=== PATIENT | female | born 1990 | race Caucasian/White ===

== ENCOUNTER → 2016-07-02 | Day surgery (SDC) | payer OTHER ==
[2016-06-25 14:34] VITALS: Ht 163.8 cm; Wt 63.6 kg
[~2016-07-02] VITALS: Ht 163.8 cm; Wt 63.6 kg
[~2016-07-02] MED LIST: ATROPINE SULFATE 0.1 MG/ML 5ML SYR IV PRN; BUPIVACAINE/EPINEPHRINE 0.5% MPF 1:200,000 30 ML VIAL ONE; CEFAZOLIN 1000MG/55 ML D5W IV SCH; EpHEDrine SULFATE INJ 50 MG/ML AMP IV PRN; FENTANYL CITRATE INJ 50 MCG/1 ML 2 ML VIAL ONE; HYDROCODONE/ACETAMOPHEN 5/325MG TAB PO PRN; IBUPROFEN 600 MG TAB PO PRN; LACTATED RINGER'S 1000ML 1,000 ML IV SCH; LIDOCAINE HCL 2% 2 ML VIAL (20MG/ML) ONE; MIDAZOLAM HCL 1 MG/ML 2ML VIAL ONE; ONDANSETRON INJ 2 MG/ML 2 ML VIAL IV PRN; PROPOFOL IV EMULSION 10 MG/ML 20 ML VIAL IV ONE; SODIUM CHLORIDE 0.9% 1000ML 1,000 ML IV SCH; SULF800T23 PO
--- NOTE | 2016-07-02 08:51 | History & Physical Bridge Note ---
H&P Re-Evaluation Bridge Note: I have examined the patient, reviewed the History & Physical and in the interval since the performance of the History & Physical I have noted the following changes of clinical significance: No changes noted
[2016-07-02 09:31] VITALS: TEMP 37.2
--- NOTE | 2016-07-02 09:33 | Discharge Instructions ---
Discharge Instructions Admission Reason for Admission: Infected Sebaceous Cyst Of Chest Wall Skin Discharge Discharge Diagnosis / Problem: Infected sebaceous cyst of chest wall. Discharge Goals Goal(s): Decrease discomfort Activity Recommendations Activity Limitations: per Instructions/Follow-up section Shower/Bathe: tomorrow . Instructions / Follow-Up Instructions / Follow-Up Please follow-up with Dr. Leger in 1 week. Patient can take Ibuprofen for pain control. Please call the office with any questions and/or concerns. Current Hospital Diet Patient's current hospital diet: Discharge Diet Recommended Diet: Regular Diet Procedures Procedures Performed: Chest Wall Sebaceous Cyst Excision Pending Studies Studies pending at discharge: yes List of pending studies: Pathology Medical Emergencies . Who to Call and When: Medical Emergencies: If at any time you feel your situation is an emergency, please call 911 immediately. . Non-Emergent Contact Non-Emergency issues call your: Primary Care Provider, Surgeon Call Non-Emergent contact if: temperature is above 101, wound has increased drainage, wound has increased redness . "Provider Documentation" section prepared by Autumn Nicholas. VTE Core Measure Inpt VTE Proph given/why not?: Unfractionated heparin SQ, SCD's
--- NOTE | 2016-07-02 09:35 | [facility] Operative Report ---
Operative Report Operative Date Jul 02, 2016. Pre-Operative Diagnosis Infected Sebaceous Cyst of Chest Wall Skin Post-Operative Diagnosis sebaceous cyst chest wall Procedure(s) Performed excision sebaceous cyst Surgeon Dr. Leger Consumer Attorney Surgeon(s) Cale Nicholas PA-C Estimated Blood Loss 5 ml Findings seymour cyst chest wall. noninflammed at time of excision Specimens A. Chest Wall Sebaceous Cyst Anesthesia MAC Complication(s) None Disposition Recovery Room / PACU I attest to the content of the Intraoperative Record and any orders documented therein. Any exceptions are noted below.
--- NOTE | 2016-07-02 09:39 | Anesthesia Progress Nt - [facility] ---
Anesthesia Post Op Note Date & Time Jul 02, 2016 at 09:39 Vital Signs Pain Intensity: 0 Vital Signs Past 12 Hours Date Time Temp Pulse Resp B/P Pulse Ox O2 Delivery O2 Flow Rate FiO2 07/02/16 09:31 37.2 88 16 108/66 99 Room Air 07/02/16 07:54 36.9 82 16 121/79 97 Room Air Notes Mental Status: alert / awake / arousable, participated in evaluation Pt Amnestic to Procedure: Yes Nausea / Vomiting: adequately controlled Pain: adequately controlled Airway Patency, RR, SpO2: stable & adequate BP & HR: stable & adequate Hydration State: stable & adequate Anesthetic Complications: no major complications apparent
--- NOTE | 2016-07-02 09:50 | OPERATIVE REPORT ---
DATE OF OPERATION: 07/02/2016 PREOPERATIVE DIAGNOSIS: Sebaceous cyst of the chest wall. POSTOPERATIVE DIAGNOSIS: Same. PROCEDURE: Excision of sebaceous cyst the chest wall approximately 2.5 cm. SURGEON: Dr. Leger. VALUE STREAM MANAGER: Autumn Nicholas. COMPLICATIONS: No immediate. ANESTHESIA: MAC with local. DESCRIPTION OF PROCEDURE: After informed consent was obtained, the patient taken to the operating suite and placed in supine position. IV sedation was administered by anesthesia and titrated to effect. After adequate sedation was obtained, the chest wall was sterilely prepped and draped. We then used Marcaine with epinephrine to skin wheels around the entire visible lesion. I then made a vertical incision directly over and carried it down through the soft tissue using electrocautery. Once in the soft tissue, we were able to easily identify what looked like a sebaceous cyst. It was noninflamed and noninfected. We did break the capsular release and a small amount of sebaceous material. I was able to grab the cyst using electrocautery circumferentially come around the entire thing and take it out in 1 big piece. It was passed out to be sent to pathology. No other palpable abnormalities were identified. I irrigated the wound. I closed in multiple layers using 3-0 Vicryl for the deep layers and 4-0 Monocryl for the skin. Benzoin and Steri-Strips were used as a dressing. The patient was awakened and transferred to recovery in stable condition. I attest to the content of the Intraoperative Record and any orders documented therein. Any exceptio ns are noted below.
[2016-07-02 09:51] VITALS: BP 111/73; PULSE 52; O2SAT 100
== END | disposition home or self-care (01) ==
LOC: X.SURG 07:46
PROVIDERS: ATTEND Surgery
DX: L72.3 Sebaceous cyst (principal); Z88.2 Allergy status to sulfonamides

== ENCOUNTER 2017-07-22 13:48 | Emergency (ER) | payer OTHER ==
[~2017-07-22] VITALS: Ht 165.1 cm; Wt 70.5 kg
[~2017-07-22 13:48] MED LIST changes: -ATROPINE SULFATE 0.1 MG/ML 5ML SYR IV PRN; -BUPIVACAINE/EPINEPHRINE 0.5% MPF 1:200,000 30 ML VIAL ONE; -CEFAZOLIN 1000MG/55 ML D5W IV SCH; -EpHEDrine SULFATE INJ 50 MG/ML AMP IV PRN; -FENTANYL CITRATE INJ 50 MCG/1 ML 2 ML VIAL ONE; -HYDROCODONE/ACETAMOPHEN 5/325MG TAB PO PRN; -IBUPROFEN 600 MG TAB PO PRN; -LACTATED RINGER'S 1000ML 1,000 ML IV SCH; -LIDOCAINE HCL 2% 2 ML VIAL (20MG/ML) ONE; -MIDAZOLAM HCL 1 MG/ML 2ML VIAL ONE; -ONDANSETRON INJ 2 MG/ML 2 ML VIAL IV PRN; -PROPOFOL IV EMULSION 10 MG/ML 20 ML VIAL IV ONE; -SODIUM CHLORIDE 0.9% 1000ML 1,000 ML IV SCH
[2017-07-22 13:57] VITALS: TEMP 37.1; Ht 165.1 cm; Wt 70.5 kg
[2017-07-22] MEDS ORDERED: SODIUM CHLORIDE 0.9% 1000ML 1,000 ML IV STA (14:11)
--- NOTE | 2017-07-22 14:37 | DIAGNOSTIC IMAGING REPORT ---
CHEST ONE VIEW PORTABLE CLINICAL HISTORY: Altered mental status. Weakness. COMPARISON STUDY: No previous studies for comparison. FINDINGS: Lung volumes are normal. Lungs are clear. No pneumothorax or pleural effusion is noted. Cardiac size is normal. Mediastinal contours are normal. There is no evidence for pulmonary edema. IMPRESSION: No acute cardiopulmonary findings. Electronically signed by: Judah Patrick M.D. 07/22/2017 2:36 PM Dictated Date/Time: 07/22/2017 2:35 PM
[2017-07-22 14:44] LABS: BASO % 0.4 %; BASO ABS # 0.04 K/uL (0-0.2); EOS % 0.7 %; EOS ABS # 0.06 K/uL (0-0.5); HEMATOCRIT 35.5 % (37-47); HEMOGLOBIN 12.8 g/dL (12.0-16.0); IG# 0.02 K/uL (0.00-0.02); LYMPH % 26.8 %; MEAN CELL VOLUME 85.3 fL (80-100); MEAN CORPUSCULAR HEMOGLOBIN 30.8 pg (25-34); MEAN CORPUSCULAR HGB CONC 36.1 g/dl (32-36); MEAN PLATELET VOLUME 8.9 fL (7.4-10.4); MONO % 5.7 %; MONO ABS # 0.51 K/uL (0.11-0.59); NEUT % 66.2 %; NEUT ABS # 5.92 K/uL (1.4-6.5); PLATELET COUNT 229 K/uL (130-400); RED CELL DISTRIBUTION WIDTH CV 12.6 % (11.5-14.5); RED CELL DISTRIBUTION WIDTH SD 38.9 fL (36.4-46.3); WHITE BLOOD COUNT 8.95 K/uL (4.8-10.8)
[2017-07-22 14:51] LABS: PTT PATIENT 26.7 SECONDS (21.0-31.0)
[2017-07-22 15:02] LABS: ALBUMIN 4.3 gm/dl (3.4-5.0); ALT/SGPT 22 U/L (12-78); BLOOD UREA NITROGEN 12 mg/dl (7-18); CALCIUM 9.1 mg/dl (8.5-10.1); CARBON DIOXIDE 23 mmol/L (21-32); CREATININE 0.82 mg/dl (0.60-1.20); GLUCOSE 83 mg/dl (70-99); LIPASE 143 U/L (73-393); POTASSIUM 3.7 mmol/L (3.5-5.1); SODIUM 139 mmol/L (136-145)
[2017-07-22 15:10] LABS: ALKALINE PHOSPHATASE 64 U/L (45-117); AST/SGOT 15 U/L (15-37); CKMB < 0.5 ng/ml (0.5-3.6); TOTAL PROTEIN 7.9 gm/dl (6.4-8.2)
[2017-07-22] MEDS ORDERED: OPTIRAY 320 IV PRN (15:30)
--- NOTE | 2017-07-22 15:40 | DIAGNOSTIC IMAGING REPORT ---
(CHEST FOR PE) ANGIO WITH CT DOSE: 242.04 mGy.cm HISTORY: Chest pain dyspnea TECHNIQUE: Multiaxial CT images of the chest were performed following the intravenous administration of contrast to evaluate the pulmonary arteries. Maximal intensity projection images were also obtained. A dose lowering technique was utilized adhering to the principles of ALARA. COMPARISON STUDY: None. FINDINGS: There is a normal caliber thoracic aorta with no evidence for dissection. There is no evidence for pulmonary embolus. No pleural effusions. No pneumothorax. The liver and spleen are unremarkable. No mediastinal or hilar lymphadenopathy. The central airways are patent. The lungs are clear. IMPRESSION: No evidence for pulmonary embolus. The lungs are clear. The above report was generated using voice recognition software. It may contain grammatical, syntax or spelling errors. Electronically signed by: Joseph Ramirez M.D. 07/22/2017 3:39 PM Dictated Date/Time: 07/22/2017 3:37 PM
--- NOTE | 2017-07-22 16:00 | EMERGENCY ROOM VISIT NOTE ---
History Report prepared by Greer: Emigdio Marte Under the Supervision of: Dr. Yuval Mccracken D.O. First contact with patient: 14:07 Chief Complaint: SHORTNESS OF BREATH Stated Complaint: SOB History of Present Illness The patient is a 26 year old female who presents to the Emergency Room with complaints of persistent shortness of breath on exertion that started a couple weeks ago. Per the patient's brother, the patient runs half-marathons, and runs on a daily basis. The patient had an upper respiratory infection a month ago with severe congestion, and was given a nasal spray by Dr. De Oliveira. The patient's symptoms started to clear up, and she started running again. She then started to have some episodes of dry heaving after starting to run again, but for the past couple of weeks, has been getting severely short of breath during even minimal exertion, such as making her bed or walking to her car. The patient notes that she was not on antibiotics during her upper respiratory infection. She is not on control. She adds that she has had some intermittent chest pain over the past few weeks, but notes that the pain has not been bad. The patient denies any pain or swelling in her legs, in addition to any recent surgeries or long trips. She does not drink alcohol or use tobacco products. Source of History: patient, family (brother) Onset: A couple weeks ago Position: other (global ) Symptom Intensity: severe Quality: other (shortness of breath) Timing: other (persistent) Modifying Factors (Worsening): exertion Associated Symptoms: + chest pain (intermittent), No vomiting Note: Associated symptoms: URI symptoms earlier last month. Denies pain or swelling to legs. Review of Systems See HPI for pertinent positives & negatives. A total of 10 systems reviewed and were otherwise negative. Past Medical & Surgical Medical Problems: (1) No chronic problems Family History No pertinent family history Social History Smoking Status: Never Smoker Smokeless Tobacco Use: No Alcohol Use: none Drug Use: none Marital Status: single Occupation Status: employed Current/Historical Medications No Active Prescriptions or Reported Meds Allergies Coded Allergies: No Known Allergies (Verified , 07/22/17) Physical Exam Vital Signs Date Time Temp Pulse Resp B/P (MAP) Pulse Ox O2 Delivery O2 Flow Rate FiO2 07/22/17 15:38 85 16 144/70 96 Room Air 3/2/18 14:18 98 Room Air 07/22/17 13:57 37.1 57 17 134/76 93 Room Air Physical Exam CONSTITUTIONAL/VITAL SIGNS: Reviewed / noted above. GENERAL: Non-toxic in appearance. INTEGUMENTARY: Warm, dry, and [place]. HEAD: Normocephalic. EYES: without scleral icterus or trauma. ENT/OROPHARYNX: clear and moist. LYMPHADENOPATHY/NECK: Is supple without lymphadenopathy or meningismus. RESPIRATORY: Lungs clear and equal. CARDIOVASCULAR: Regular rate and rhythm. GI/ABDOMEN: Soft and nontender. No organomegaly or pulsatile mass. No rebound or guarding. Normal bowel sounds. EXTREMITIES: Warm and well perfused. BACK: No CVA tenderness. NEUROLOGICAL: Intact without focal deficits. PSYCHIATRIC: normal affect. MUSCULOSKELETAL: Normally developed with good muscle tone. Medical Decision & Procedures ER Provider Diagnostic Interpretation: Radiology results as stated below per my review and radiologist interpretation: CHEST ONE VIEW PORTABLE CLINICAL HISTORY: Altered mental status. Weakness. COMPARISON STUDY: No previous studies for comparison. FINDINGS: Lung volumes are normal. Lungs are clear. No pneumothorax or pleural effusion is noted. Cardiac size is normal. Mediastinal contours are normal. There is no evidence for pulmonary edema. IMPRESSION: No acute cardiopulmonary findings. Electronically signed by: Judah Patrick M.D. 07/22/2017 2:36 PM Dictated Date/Time: 07/22/2017 2:35 PM (CHEST FOR PE) ANGIO WITH CT DOSE: 242.04 mGy.cm HISTORY: Chest pain dyspnea TECHNIQUE: Multiaxial CT images of the chest were performed following the intravenous administration of contrast to evaluate the pulmonary arteries. Maximal intensity projection images were also obtained. A dose lowering technique was utilized adhering to the principles of ALARA. COMPARISON STUDY: None. FINDINGS: There is a normal caliber thoracic aorta with no evidence for dissection. There is no evidence for pulmonary embolus. No pleural effusions. No pneumothorax. The liver and spleen are unremarkable. No mediastinal or hilar lymphadenopathy. The central airways are patent. The lungs are clear. IMPRESSION: No evidence for pulmonary embolus. The lungs are clear. The above report was generated using voice recognition software. It may contain grammatical, syntax or spelling errors. Electronically signed by: Joseph Ramirez M.D. 07/22/2017 3:39 PM Dictated Date/Time: 07/22/2017 3:37 PM Laboratory Results 07/22/17 14:20 Red Blood Count 4.16, Mean Corpuscular Volume 85.3, Mean Corpuscular Hemoglobin 30.8, Mean Corpuscular Hemoglobin Concent 36.1, Mean Platelet Volume 8.9, Neutrophils (%) (Auto) 66.2, Lymphocytes (%) (Auto) 26.8, Monocytes (%) (Auto) 5.7, Eosinophils (%) (Auto) 0.7, Basophils (%) (Auto) 0.4, Neutrophils # (Auto) 5.92, Lymphocytes # (Auto) 2.40, Monocytes # (Auto) 0.51, Eosinophils # (Auto) 0.06, Basophils # (Auto) 0.04 07/22/17 14:20 Test 07/22/17 14:20 White Blood Count 8.95 K/uL (4.8-10.8) Red Blood Count 4.16 M/uL (4.2-5.4) Hemoglobin 12.8 g/dL (12.0-16.0) Hematocrit 35.5 % (37-47) Mean Corpuscular Volume 85.3 fL (80-100) Mean Corpuscular Hemoglobin 30.8 pg (25-34) Mean Corpuscular Hemoglobin Concent 36.1 g/dl (32-36) Platelet Count 229 K/uL (130-400) Mean Platelet Volume 8.9 fL (7.4-10.4) Neutrophils (%) (Auto) 66.2 % Lymphocytes (%) (Auto) 26.8 % Monocytes (%) (Auto) 5.7 % Eosinophils (%) (Auto) 0.7 % Basophils (%) (Auto) 0.4 % Neutrophils # (Auto) 5.92 K/uL (1.4-6.5) Lymphocytes # (Auto) 2.40 K/uL (1.2-3.4) Monocytes # (Auto) 0.51 K/uL (0.11-0.59) Eosinophils # (Auto) 0.06 K/uL (0-0.5) Basophils # (Auto) 0.04 K/uL (0-0.2) RDW Standard Deviation 38.9 fL (36.4-46.3) RDW Coefficient of Variation 12.6 % (11.5-14.5) Immature Granulocyte % (Auto) 0.2 % Immature Granulocyte # (Auto) 0.02 K/uL (0.00-0.02) Prothrombin Time 10.3 SECONDS (9.0-12.0) Prothromb Time International Ratio 1.0 (0.9-1.1) Activated Partial Thromboplast Time 26.7 SECONDS (21.0-31.0) Partial Thromboplastin Ratio 1.0 Anion Gap 8.0 mmol/L (3-11) Est Creatinine Clear Calc Drug Dose 103.3 ml/min Estimated GFR () 115.3 Estimated GFR (Non- 99.5 BUN/Creatinine Ratio 14.8 (10-20) Calcium Level 9.1 mg/dl (8.5-10.1) Magnesium Level 2.1 mg/dl (1.8-2.4) Total Bilirubin 0.8 mg/dl (0.2-1) Direct Bilirubin 0.2 mg/dl (0-0.2) Aspartate Amino Transf (AST/SGOT) 15 U/L (15-37) Alanine Aminotransferase (ALT/SGPT) 22 U/L (12-78) Alkaline Phosphatase 64 U/L (45-117) Total Creatine Kinase 40 U/L (26-192) Creatine Kinase MB < 0.5 ng/ml (0.5-3.6) Creatine Kinase MB Ratio (0-3.0) Troponin I < 0.015 ng/ml (0-0.045) Total Protein 7.9 gm/dl (6.4-8.2) Albumin 4.3 gm/dl (3.4-5.0) Lipase 143 U/L (73-393) Thyroid Stimulating Hormone (TSH) 1.190 uIu/ml (0.300-4.500) Laboratory results as stated above per my review. Medications Administered Medications (Trade) Dose Ordered Sig/Yvette Route Start Time Stop Time Status Last Admin Dose Admin Sodium Chloride 1,000 ml @ 999 mls/hr Q1H1M STAT IV 07/22/17 14:11 07/22/17 15:11 DC 07/22/17 14:30 999 MLS/HR ECG Per My Interpretation Indication: SOB/dyspnea Rate (beats per minute): 92 Rhythm: normal sinus Findings: other (no ST elevations or depressions, normal intervals) ED Course 1411: Ordered NSS 1000 ml @ 999 mls/hr IV. 1414: Previous medical records were reviewed. The patient was evaluated in room C5. A complete history and physical examination was performed. 1451: I reevaluated the patient and updated her on the test results. 1600: On reevaluation, the patient is resting comfortably. I discussed the results and findings with the patient. She verbalized agreement of the treatment plan. She was discharged home. Medical Decision Differentials considered include acute myocardial infarction, acute coronary syndrome, myocarditis, pericarditis, pericardial effusions /tamponade, esophageal perforation, pulmonary embolism, pneumonia, pneumothorax, cardiomyopathy, congestive heart, anemia, and COPD/asthma exacerbation. This is a 26-year-old female who presents to the ED with a chief complaint of shortness of breath. The patient's symptoms began about a month ago with an upper respiratory infection. Her symptoms have since resolved. She has recently been experiencing exertional dyspnea. Her physical exam was normal. Her vital signs here are normal. An EKG shows a normal sinus rhythm. CBC is normal, troponin was negative, TSH was normal, complete metabolic panel was normal, chest x-ray is normal and a CT scan of the chest did not show acute abnormality. The was told the results of the test. The patient is felt to be stable for discharge and outpatient follow-up. Medication Reconcilliation Current Medication List: was personally reviewed by me Blood Pressure Screening Patient's blood pressure: Elevated blood pressure Blood pressure disposition: Elevated BP felt to be situational Impression Primary Impression: Dyspnea on exertion Scribe Attestation The scribe's documentation has been prepared under my direction and personally reviewed by me in its entirety. I confirm that the note above accurately reflects all work, treatment, procedures, and medical decision making performed by me. Departure Information Dispostion Home / Self-Care Prescriptions No Active Prescriptions or Reported Meds Referrals Sakina Shah A. P.ANancie (PCP) Patient Instructions [facility] Additional Instructions Test results today, including a CT scan of the chest and blood work was normal. Follow-up with your doctor for further care and evaluation in 1-2 weeks for recheck if symptoms persist. Return to the emergency department for worsening or new symptoms or any concerns. You have been examined and treated today on an emergency basis only. This is not a substitute for, or an effort to provide, complete comprehensive medical care. It is impossible to recognize and treat all injuries or illnesses in a single emergency department visit. It is therefore important that you follow up closely with your doctor. Call as soon as possible for an appointment.
[2017-07-22 16:15] VITALS: BP 129/78; PULSE 80; O2SAT 100
== END 2017-07-22 16:16 | disposition home or self-care (01) ==
LOC: C.EDB 13:49 → C.EDC 16:16
DX: R06.00 Dyspnea, unspecified (principal); R07.9 Chest pain, unspecified

== ENCOUNTER 2021-08-24 08:04 | Observation (INO) ==
--- NOTE | 2021-08-24 09:16 | Obstetrical Progress Note ---
Date of Service August 24, 2021 Assessment & Plan (1) Abdominal pain affecting : Plan: 30 y/o G1 at 35wks presents w/ L flank pain VSS Fetus cat 1 Flank pain - seems suspicious for kidney stone based on location w/ intermittent nausea and vomiting. UA ordered. Cervix is closed and toco quiet > low suspicion for ptl. Will hydrate, tylenol, heat pack to see if can get more comfortable Subjective 30 y/o G1 at 35 1/7 wga w/ ZHAO 5/8 by LMP presents to triage w/ c/o L flank pain. Overnight has had intermittent L flank pain. Had few episodes later in the evening that did go away and so pt thought it was BH contractions. She was able to rest but then around 130 began having pain again and notes it has been persistent since 530 this AM. Sometimes is sharp, sometimes is achey. Pain makes her nauseous but does not think she is nauseous separately and is not currently. She did try to take tylenol around 130 but vomited almost immediately after. Has never had kidney stone but mom and brothers have had kidney stones. Denies blood in urine. +FM; denies LOF, VB PNI: Mild polyhydramnios arrhythmia Rh neg Physical Exam Genitourinary: Manual OB Exam: + cervical dilation (closed), + cervical effacement 30% and + station -2 OB Exam Monitor Tracing: + external FHT monitor used, + external uterine monitor used (None) and + category I (130/mod/+accel/-decel) Results & Data ([facility]) Vital Signs (Past 12 Hours) Vital Signs Temp Pulse Resp BP 08/24/21 08:50 98.8 F 90 20 135/88 08/24/21 08:16 90 135/88 PG Care Time/CCT Total # of Minutes Spent Total Time Spent with Patient: Total time spent is greater than 50% in coordination of care (as documented) at patient's floor/unit and/or counseling patient: Coding Level of Care Code None Diagnoses Abdominal pain affecting O26.899; R10.9
[2021-08-24] MEDS ORDERED: ACETAMINOPHEN 500 MG TAB PO PRN (09:17)
[2021-08-24] MEDS ORDERED: CALCIUM CARBONATE 500 MG CHEWABLE TAB PO PRN (09:18)
[2021-08-24 09:28] LABS: Appearance Urine Turbid (Clear); Bacteria Urine Automated 4+ (Negative); Bilirubin Urine Negative (Negative); Blood Urine 3+ (Negative); Color Urine Yellow; Epithelial Cell Urine Auto >30 /lpf (0-5); Glucose Urine UA Trace (Negative); Ketones Urine 3+ (Negative); Leukocyte Esterase Urine 1+ (Negative); Nitrite Urine Negative (Negative); Protein Urine 2+ (Negative); RBC Urine Automated >30 /hpf (0-4); Specific Gravity Urine 1.027 (1.000-1.030); Urobilinogen Urine Negative (Negative); WBC Urine Automated >30 /hpf (0-5)
[2021-08-24 10:20] LABS: Cast Urine Automated 0 /lpf (0-5)
--- NOTE | 2021-08-24 12:03 | Ultrasound Report ---
US renal/blad retro comp CLINICAL HISTORY: left sided pain TECHNIQUE: Multiple sonographic real-time images of the kidneys and bladder were obtained. COMPARISON: None available at the time of this dictation. FINDINGS: The right kidney measures 10.5 cm in length, and the left kidney measures 13.5 cm in length. The right kidney is normal in size, contour, cortical thickness, and echogenicity. Mild hydronephrosi s is seen. No renal lesion is identified. No perinephric fluid collection is seen. The left kidney is normal in size, contour, cortical thickness and echogenicity. Mild hydronephrosis is seen. No renal lesion is identified. No perinephric fluid collection is seen. The bladder is partially distended. No large intraluminal mass is seen. IMPRESSION: Mild bilateral hydronephrosis which may represent hydronephrosis of . ACT 112: Negative or not required by law. Electronically signed by: Devon Kenyon M.D. 08/24/2021 12:01 PM
[2021-08-24] MEDS ORDERED: BUTORPHANOL TARTRATE 1 MG/ML VIAL IV ONE (13:02)
[2021-08-24] MEDS ORDERED: ONDANSETRON INJ 2 MG/ML 2 ML VIAL IV PRN (13:02)
--- NOTE | 2021-08-24 13:04 | Obstetrical Progress Note ---
Date of Service August 24, 2021 Assessment & Plan (1) Abdominal pain affecting : Plan: 30 y/o G1 at 35wks presents w/ L flank pain VSS Fetus cat 1 Flank pain - UA consistent with UTI given bacteria, suspicous for kidney stone with RBCs but hard to know if that is UTI related of stone related. Renal US not diagnostic of kidney stone as mild hydro is seen bilaterally, but difficult to truly determine if stone is present vs related. There is no CVA tenderness and pt was afebrile so low suspicion for pyelonephritis. At minimum would treat for UTI so will start keflex as it would have renal coverage if it were to ascend. Discussed low dose CT scan to determine if there is truly stone however unless stone was obstruction, there would likely not be any intervention so will try to treat symptoms for now but consider ct scan if s/s obstruction develop. Will IV hydrate and give dose of stadol to try to manage pain for possible stone, will need pain control if becomes manageable though. Will re- eval following hydration, keflex and stadol. Ample time given for questions, answered to apparent satisfaction Subjective Pt re-evaluated following return of UA and renal US. UA demonstrates >30 RBC and WBCs, 4+ bacteria, turbid, neg nitrite, trace LE, >30 epis as well. Renal US shows mild bilateral hydronephrosis w/o perinephric fluid collection, may represent hydronephrosis of . Has started having more intermittent nausea/vomiting with colicky pain again Physical Exam Musculoskeletal: no CVA tenderness (also no tenderness on prior exam but sign hit before note submitted) Genitourinary: OB Exam Monitor Tracing: + external FHT monitor used, + external uterine monitor used (None) and + category I (130-135/mod/+accel/-decel) Results & Data ([facility]) Vital Signs (Past 12 Hours) Vital Signs Temp Pulse Resp BP 08/24/21 08:50 98.8 F 90 20 135/88 08/24/21 08:16 98.8 F 90 20 135/88 PG Care Time/CCT Total # of Minutes Spent Total Time Spent with Patient: Total time spent is greater than 50% in coordination of care (as documented) at patient's floor/unit and/or counseling patient: Coding Level of Care Code None Diagnoses Abdominal pain affecting O26.899; R10.9
[2021-08-24] MEDS ORDERED: LACTATED RINGER'S 500 ML IV ONE (13:08)
[2021-08-24] MEDS: cephALEXin 500 MG CAP PO SCH ×3 (13:54→22:30)
[2021-08-24] MEDS: BUTORPHANOL TARTRATE 1 MG/ML VIAL IV PRN ×3 (15:11→17:29)
[2021-08-24] MEDS: LACTATED RINGER'S 1,000 ML IV SCH ×2 (15:45→22:30)
[2021-08-24] MEDS: HYDROmorphone INJ 0.5 MG/0.5 ML SYR IV PRN ×6 (18:11→23:33)
[2021-08-24] MEDS ORDERED: ACETAMINOPHEN 1,000 MG/100 ML VIAL IV PRN (21:41)
--- NOTE | 2021-08-24 22:25 | Hospitalist Consultation ---
Date of Consultation August 24, 2021 Assessment & Plan (1) Left flank pain: 30-year-old female with no significant past medical history currently G1 at 35 weeks and 1 day presented to L&D triage with complaints of left flank pain. #Left flank pain in the setting of urinary tract infection with concern for stone Etiology of the pain is not entirely clear. See HPI for history, patient endorsing left flank pain that is been consistent since 5:00 in the morning on 08/24. She states that her pain is dull 4/10 most the time but can become a 10/10. The location of her pain is the left lower quadrant. The pain is not worse with palpation and at times improves with palpation. She endorses chills, nausea, vomiting, pain, generalized malaise denying fevers, shortness of breath, significant fatigue, focal neurological symptoms cough, congestion, bowel or bladder dysfunction. She does note that she has not eaten in the last 24 hours, her last bowel movement was yesterday, she has not been passing gas. Patient had a renal ultrasound which demonstrated bilateral hydronephrosis which could be secondary to her it was not diagnostic for a stone. Differential to include UTI, UTI with stone, diverticulitis, gas pains. Unable to definitively diagnose stone without CT scan will consult urology for recommendations. For now we will treat as UTI with kidney stone -Continue Keflex 4 times daily -LR at 125 -Scheduled IV Tylenol every 8 hours, Dilaudid for breakthrough pain -Follow-up CBC and CMP -Strain all urine -If patient begins to acutely worsen will likely need imaging -Consult urology appreciate recommendations FENa: Regular diet Code Status: Full code DVT PPX: SCDs PT/OT: Not indicated Case Management: Not indicated Dispo: L&D Zeb Rodriguez MD PGY 3, FCM This chart was completed utilizing Slingjot voice recognition software. Grammatical errors, random word insertions, pronoun errors, and in complete sentences are an occasional consequence of the system. Any questions or concerns about the content, text, or information contained within the body of this dictation should be addressed directly to the physician for clarification. (2) UTI (urinary tract infection): Supervising Physician Co-Signing Physician Notes Chart reviewed. Case discussed with Dr. Ash Rodriguez and I agree with the assessment and plan as above History of Present Illness Attending Physician: Lea Whitt MD, FACOG History of Present Illness 30-year-old female with no significant past medical history currently G1 at 35 weeks and 1 day presented to L&D triage with complaints of left flank pain. Patient noted her pain started 1 day prior to admission as intermittent left flank pain which worsened into the evening and did not go away at the time patient thought it was [place] contractions. Pain became persistent around 1:30 AM on the day prior to admission. The patient describes the pain as sharp and achy and at times makes her nauseous. She attempted Tylenol prior to presentation but vomited up almost immediately. She is never had a kidney stone however has a family history in her mother and brothers. Obstetrics performed a UA on presentation which was consistent with a urinary tract infection cultures were sent and the patient was started on Keflex. The hospital service was consulted for management of the patient's UTI. Upon arrival to the patient's room she is lying in bed reporting 2 out of 10 pain. She reiterated a story as described above. She notes her pain is located in the left lower quadrant about two th[address] the way between the pelvis and the ribs. She states that the pain is dull most the time but at times becomes sharp. For example she will have an episode of sharp pain take 1 dose of Dilaudid have no relief take a second dose Dilaudid if no relief and then will finally achieve pain control. She denies any significant symptoms other than vomiting and nausea. Acute concerns relate pain all questions answered Allergies Allergy/AdvReac Type Severity Reaction Status Date / Time No Known Allergies Allergy Verified 08/21/21 13:30 Home Medications Medication Instructions Recorded Confirmed Type prenat.vits,mo,oeh-dbbm-wocan 1 tab PO DAILY 02/09/21 08/21/21 History ferrous sulfate PO 07/31/21 08/21/21 History calcium carbonate [Tums] PO 08/21/21 08/21/21 History cephalexin 500 mg capsule 500 mg PO Q6H 9 Days #36 cap 08/25/21 Rx oxycodone-acetaminophen 5 mg-325 1 tab PO Q6H PRN #10 tab 08/25/21 Rx mg tablet (Percocet) Patient History Medical History Asthma Childhood Surgical History History of breast biopsy S/P tonsillectomy Family History Father Diabetes Mother Lupus Asthma Aunt Breast cancer Other Dyslipidemia Hypertension Social History Smoking Status: Never smoker Hx Alcohol Use: No Hx Substance Use: No Preferred Language: Uruguayan Communication Ability: Effective 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 Feels Safe at Home: Yes Assistive Devices: None Review of Systems Review of Systems: as above Physical Exam Physical Exam: General: Lying in bed no acute distress HEENT: Normocephalic atraumatic Neck: Normal to visual inspection Cardiac: Regular rate and rhythm I did not appreciate any significant murmurs rubs or gallops, normal S1, normal S2, trace pedal edema, negative calf tenderness Respiratory: Clear to auscultation bilaterally with symmetrical chest expansion GI: Soft, nontender, nondistended, reporting pain in the left lower quadrant however not tender on palpation in fact at times palpating will help Results & Data Results & Data ([facility]) Vital Signs (Past 12 Hours) Vital Signs Temp Pulse Resp BP 08/24/21 20:34 93 H 130/67 08/24/21 20:00 36.8 C 18 08/24/21 19:52 96 H 140/86 08/24/21 15:10 91 H 95/64 L Laboratory Results 08/24/21 08/24/21 Range/Units Unknown Unknown Urine Color Yellow Urine Appearance Turbid A (Clear) Urine pH 7.0 (4.5-7.5) Ur Specific [place] 1.027 (1.000-1.030) Urine Protein 2+ H (Negative) Urine Glucose (UA) Trace H (Negative) Urine Ketones 3+ H (Negative) Urine Blood 3+ H (Negative) Urine Nitrite Negative (Negative) Urine Bilirubin Negative (Negative) Urine Urobilinogen Negative (Negative) Ur Leukocyte Esterase 1+ H (Negative) Urine WBC (Auto) >30 H (0-5) /hpf Urine RBC (Auto) >30 H (0-4) /hpf U Hyaline Cast (Auto) 0 (0-5) /lpf U Epithel Cells (Auto) >30 H (0-5) /lpf Urine Bacteria (Auto) 4+ H (Negative) Urine Yeast Not Reportable SARS-CoV-2, RNA, NAAT NEGATIVE (NEGATIVE) Medications Administered Current Inpatient Medications Acetaminophen (Acetaminophen 500 Mg Tab) 1,000 mg PO Q6H PRN PRN Reason: Pain or Fever Stop: 09/23/21 09:16 Last Admin: 08/24/21 09:30 Dose: 1,000 mg Documented by: Butorphanol Tartrate (Butorphanol Tartrate 1 Mg/Ml Vial) 1 mg IV Q1H PRN PRN Reason: Pain Stop: 09/23/21 15:01 Last Admin: 08/24/21 17:29 Dose: 1 mg Documented by: Calcium Carbonate (Calcium Carbonate 500 Mg Chewable Tab) 1,500 mg PO Q4 PRN PRN Reason: Indigestion Stop: 09/23/21 09:17 Cephalexin HCl (Cephalexin 500 Mg Cap) 500 mg PO QID TEODORO Stop: 08/31/21 16:59 Last Admin: 08/24/21 22:30 Dose: 500 mg Documented by: Hydromorphone HCl (Hydromorphone Inj 0.5 Mg/0.5 Ml Syr) 0.5 mg IV Q15M PRN PRN Reason: Pain Stop: 09/07/21 17:47 Last Admin: 08/24/21 20:58 Dose: 0.5 mg Documented by: Lactated Ringer's (Lr) 1,000 mls @ 125 mls/hr IV .Q8H TEODORO Stop: 09/23/21 15:14 Last Admin: 08/24/21 22:30 Dose: 125 mls/hr Documented by: Acetaminophen (Ofirmev) 1,000 mg in 100 mls @ 400 mls/hr IV Q8H PRN PRN Reason: Pain Stop: 08/27/21 21:40 Last Admin: 08/24/21 22:15 Dose: 400 mls/hr Documented by: Ondansetron HCl (Ondansetron Inj 2 Mg/Ml 2 Ml Vial) 4 mg IV Q4H PRN PRN Reason: Nausea Stop: 09/23/21 13:01
[2021-08-24] MEDS ORDERED: ACETAMINOPHEN 1,000 MG/100 ML VIAL IV SCH (23:30)
[2021-08-24 23:42] LABS: Hematocrit (blood only) 33.2 % (37-47); Hemoglobin 10.8 g/dL (12.0-16.0); Mean Corpuscular Hemoglobin 29.3 pg (25-34); Mean Corpuscular Hgb Conc 32.5 g/dL (32-36); Mean Corpuscular Volume 90.2 fL (80-100); Mean Platelet Volume 9.8 fL (7.4-10.4); Platelet Count 163 K/uL (130-400); RDW Coefficient of Variation 14.7 % (11.5-14.5); RDW Standard Deviation 48.1 fL (36.4-46.3); Red Blood Count 3.68 M/uL (4.2-5.4); White Blood Count 14.91 K/uL (4.8-10.8)
[2021-08-25 00:06] LABS: Albumin Globulin Ratio 1.1 (0.9-2); Albumin Level 3.3 gm/dl (3.4-5.0); BUN Creatinine Ratio 11.1 (10-20); Bilirubin,Total 0.7 mg/dl (0.2-1.0); Calcium 8.2 mg/dl (8.5-10.1); Est GFR (African American) 113.8 ml/min; Est GFR (Non-African American) 98.1 ml/min; Globulin 2.9 gm/dl (2.5-4.0); Potassium 3.7 mmol/L (3.5-5.1); Total Protein 6.2 gm/dl (6.0-8.3)
[2021-08-25 00:13] LABS: Basophils # (auto) 0.02 K/uL (0-0.2); Basophils % (auto) 0.1 %; Eosinophils # (auto) 0.02 K/uL (0-0.5); Eosinophils % (auto) 0.1 %; Immature Granulocytes # (auto) 0.24 K/uL (0.00-0.02); Immature Granulocytes % (auto) 1.6 %; Lymphocytes # (auto) 1.03 K/uL (1.2-3.4); Lymphocytes % (auto) 6.9 %; Monocytes # (auto) 1.36 K/uL (0.11-0.59); Monocytes % (auto) 9.1 %; Neutrophils # (auto) 12.24 K/uL (1.4-6.5); Neutrophils % (auto) 82.2 %; Polychromasia 1+
[2021-08-25] MEDS: HYDROmorphone INJ 0.5 MG/0.5 ML SYR IV PRN ×8 (01:29→09:28)
[2021-08-25] MEDS: LACTATED RINGER'S 1,000 ML IV SCH (05:48)
[2021-08-25] MEDS ORDERED: ACETAMINOPHEN 1,000 MG/100 ML VIAL IV SCH (06:00)
--- NOTE | 2021-08-25 06:49 | Obstetrical Progress Note ---
Date of Service August 25, 2021 Assessment & Plan Admission and Anticipated Discharge Date Admission Date: August 24, 2021 Subjective Pain is somewhat improved although every 2 hours she is still requiring Dilaudid IV Tylenol is helping the medical team has been consulted and urology will be consulted this morning as well we will continue to try and control her pain at this stage await further input from the consulting teams Results & Data ([facility]) Vital Signs (Past 12 Hours) Vital Signs Temp Pulse Resp BP 08/25/21 02:56 98.4 F 08/25/21 02:55 94 H 134/76 08/24/21 23:00 98.2 F 08/24/21 22:50 87 141/83 H 08/24/21 20:34 93 H 130/67 08/24/21 20:00 98.2 F 08/24/21 19:52 96 H 140/86 PG Care Time/CCT Total # of Minutes Spent Total Time Spent with Patient: Total time spent is greater than 50% in coordination of care (as documented) at patient's floor/unit and/or counseling patient: Coding Level of Care Code 11017 Office/Outpt Visit, Est
[2021-08-25] MEDS: cephALEXin 500 MG CAP PO SCH ×2 (08:27→12:53)
--- NOTE | 2021-08-25 09:36 | Hospitalist Progress Note ---
Date of Service August 25, 2021 Assessment & Plan (1) Left flank pain: Plan: 30-year-old female with no significant past medical history currently G1 at 35 weeks and 1 day presented to L&D triage with complaints of left flank pain. Left Flank Pain -U/A on arrival w/ LE, WBC, RBC, epithelial cells, bacteria. Urine culture pending. -Renal US w/ mild bilateral hydronephrosis which may represent hydronephrosis of -Differential includes UTI, nephrolithiasis, constipation, diverticulitis, colitis. -Started on Keflex 500mg QID 08/24. -Most likely UTI given improvement on Keflex. -Urology consulted - no intervention needed at this time. -Advance diet as tolerated. If able to tolerate diet, okay to D/C w/ Keflex. -Pain control - received IV dilaudid while inpatient. minimal pain this afternoon. FENa: Regular diet Code Status: Full code DVT PPX: SCDs PT/OT: Not indicated Case Management: Not indicated Dispo: L&D (2) UTI (urinary tract infection): Admission and Anticipated Discharge Date Admission Date: August 24, 2021 Supervising Physician Co-Signing Physician Notes Resident Physician Supervision Note: I independently interviewed and examined the patient and verified the villegas history and physical, reviewed labs and image studies and agree with resident Dr. Cox findings and care plan. Subjective No overnight events. Patient stated her pain is lessened today as she only required one dose of Dilaudid this morning as opposed to the two doses she needed last night. She reiterated she does not have a history of kidney stones herself but her mother and brother do. She denied any past history of gas trointestinal disorders or family history of such. Patient has had UTI in past but only 1 or 2 times. Denies fevers, chills, headache, changes in vision or hearing, dysuria. Review of Systems Review of Systems: as per subjective. Physical Exam Constitutional: WD/WN, vitals as above Eyes: PERRL, conjunctivae normal, anicteric sclerae Respiratory: normal respiratory effort, lungs clear to auscultation Cardiovascular: RRR, no murmur, no edema Gastrointestinal (Abdomen): BS+, soft, gravid abdomen, mild tenderness to palpation at LLQ. Results & Data Results & Data ([facility]) Vital Signs (Past 12 Hours) Vital Signs Temp Pulse Resp BP 08/25/21 07:34 96 H 137/78 08/25/21 07:30 36.8 C 20 08/25/21 02:56 36.9 C 18 08/25/21 02:55 94 H 134/76 08/24/21 23:00 36.8 C 18 08/24/21 22:50 87 141/83 H Resident Activity Tracking Resident Involvement: Resident Care Provided Care Provided: Adult Hospital Medicine
--- NOTE | 2021-08-25 11:16 | Urology Consultation ---
Date of Consultation August 25, 2021 Assessment & Plan (1) Left flank pain: (2) Hydronephrosis: 30yo F who is currently at 35 weeks and presented to L&D triage with complaints of left flank pain. UA on presentation suspicious for infection. A renal ultrasound was obtained and notable for mild bilateral hydronephrosis, which may represent hydronephrosis of . Pt was admitted for left flank pain in the setting of suspected UTI with concern for stone. Urology consulted for possible stone. - Plan of care reviewed with Dr. Sterling, on-call urologist. - Still with LLQ pain today, but reports a significant improvement since admission. - Remains afebrile, hemodynamically stable, non-toxic appearing. - Labs 08/24 reviewed - Wbc 14.91, Creatinine 0.81 - UA on admission suspicious for infection, urine culture pending. - Started on Keflex 500mg QID, follow culture. - No acute intervention warranted at this time. - Left flank pain of uncertain etiology. LADARIUS reviewed and notable for b/l hydronephrosis which is not uncommon given status. No visible ob structing/ureteral calculi identified on ultrasound. - OK to have diet back from standpoint. - Recommend continuing with supportive care, pain management, antibiotic therapy, and close monitoring. - Please contact our service if patient were to develop s/s of sepsis or obstruction, as this may necessitate transfer to tertiary care center for percutaneous nephrostomy tube placement. - Will arrange outpatient follow-up with our service. - Urology will follow peripherally. Please contact us with any additional questions, concerns, or changes in patient status. History of Present Illness Reason for Consultation: stone Attending Physician: Lea Whitt MD, FACOG History of Present Illness 30yo female with no significant past medical history currently at 35 weeks who presented to L&D triage with complaints of left flank pain. She noted her pain started 1 day prior to admission as intermittent left flank pain which worsened into the evening and did not go away. At the time patient thought it was [place] contractions. Pain became persistent and at times made her nauseous. She attempted Tylenol prior to presentation but vomited up almost immediately. Urinalysis on admission was suspicious for infection. A renal ultrasound was obtained and notable for bilateral hydronephrosis. Patient was admitted to L&D with left flank pain in the setting of suspected UTI with concern for stone. Urology consulted for possible stone. Renal Ultrasound Impression - Mild bilateral hydronephrosis which may represent hydronephrosis of . Pt examined at bedside this AM. Awake, resting in bed on arrival. No acute distress. Reports her pain has significantly improved since admission. Still with intermittent LLQ pain, currently rates 3/10. She did have a dose of IV pain medication this morning. Denies fevers or chills. No nausea or vomiting at present. Voiding without issue. Denies hematuria/dysuria. Feels she is emptying her bladder. Denies personal hx of stones, however does report family hx including mother and brother. Denies hx of recurrent UTI. No additional complaints or concerns at time of exam. Allergies Allergy/AdvReac Type Severity Reaction Status Date / Time No Known Allergies Allergy Verified 08/21/21 13:30 Home Medications Medication Instructions Recorded Confirmed Type prenat.vits,mo,xlo-jshb-irwdp 1 tab PO DAILY 02/09/21 08/21/21 History ferrous sulfate PO 07/31/21 08/21/21 History calcium carbonate [Tums] PO 08/21/21 08/21/21 History cephalexin 500 mg capsule 500 mg PO Q6H 9 Days #36 cap 08/25/21 Rx oxycodone-acetaminophen 5 mg-325 1 tab PO Q6H PRN #10 tab 08/25/21 Rx mg tablet (Percocet) Patient History Medical History Asthma Childhood Surgical History History of breast biopsy S/P tonsillectomy Family History Father Diabetes Mother Lupus Asthma Aunt Breast cancer Other Dyslipidemia Hypertension Social History Smoking Status: Never smoker Hx Alcohol Use: No Hx Substance Use: No Preferred Language: Korean Communication Ability: Effective Side Stitcher Required: No Beliefs That Will Affect Care: None marital status: marital status details: Ed (29) [phone] Current Living Situation: Spouse Current Living Situation Comment: lives with spouse, 2 dogs. 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 Musculoskeletal: Head/Neck/Chest: normocephalic Skin: Warm and dry. No visible rashes/lesions to exposed skin areas. Neurologic: moves all extremities and awake Psychiatric: Orientation: alert, oriented x 3 and cooperative Genitourinary: no CVA tenderness Results & Data ([facility]) Vital Signs (Past 12 Hours) Vital Signs Temp Pulse Resp BP 08/25/21 07:34 96 H 137/78 08/25/21 07:30 36.8 C 20 08/25/21 02:56 36.9 C 18 08/25/21 02:55 94 H 134/76 PG Care Time/CCT Total # of Minutes Spent Total Time Spent with Patient: Total time spent is greater than 50% in coordination of care (as documented) at patient's floor/unit and/or counseling patient: Coding Level of Care Code 47154 Inpt Consult Level 3 Diagnoses Left flank pain R10.9 Hydronephrosis N13.30
--- NOTE | 2021-08-25 14:09 | Obstetrical Progress Note ---
Date of Service August 25, 2021 Assessment & Plan Admission and Anticipated Discharge Date Admission Date: August 24, 2021 Subjective Patient is feeling much better. She tolerated lunch well, no nausea. Pain is muc h improved. I discussed with hospitalist service, who feels patient is ok for DC home from their standpoint. Per urology note, urology is also arranging outpatient followup. Will plan for DC home. Patient agreeable. Recommend continue hydration. Will send Rx for keflex and for percocet for PRN pain control #10 tabs. Followup is scheduled in OB office Tuesday of this week. Reviewed DC instructions, she is to call back if any worsening of symptoms. Results & Data ([facility]) Vital Signs (Past 12 Hours) Vital Signs Temp Pulse Resp BP 08/25/21 11:45 36.7 C 08/25/21 11:42 84 133/72 08/25/21 07:34 96 H 137/78 08/25/21 07:30 36.8 C 20 08/25/21 02:56 36.9 C 18 08/25/21 02:55 94 H 134/76 PG Care Time/CCT Total # of Minutes Spent Total Time Spent with Patient: Total time spent is greater than 50% in coordination of care (as documented) at patient's floor/unit and/or counseling patient: Coding Level of Care Code None
[2021-08-25] MEDS ORDERED: ACETAMINOPHEN 500 MG TAB PO SCH (16:00)
--- NOTE | 2021-08-27 17:11 | Discharge Summary ---
Date of Service August 27, 2021 Discharge Data Consultations 08/24/21 21:42 Consult Hospitalist Stat 08/25/21 01:32 Consult Urology Routine Hospital Course (1) Abdominal pain affecting : 30 y/o G1 at 35wks presents w/ L flank pain VSS Fetus cat 1 Flank pain - UA consistent with UTI given bacteria, suspicous for kidney stone with RBCs but hard to know if that is UTI related of stone related. Renal US not diagnostic of kidney stone as mild hydro is seen bilaterally, but difficult to truly determine if stone is present vs related. There is no CVA tenderness and pt was afebrile so low suspicion for pyelonephritis. At minimum would treat for UTI so will start keflex as it would have renal coverage if it were to ascend. Discussed low dose CT scan to determine if there is truly stone however unless stone was obstruction, there would likely not be any intervention so will try to treat symptoms for now but consider ct scan if s/s obstruction develop. Will IV hydrate and give dose of stadol to try to manage pain for possible stone, will need pain control if becomes manageable though. Will re- eval following hydration, keflex and stadol. Ample time given for questions, answered to apparent satisfaction I saw patient on day of discharge -she was feeling much better after antibiotics. Hospitalist and urology services signed off. Please see chart for further details of care under other physicians. Coding Level of Care Code None Diagnoses Abdominal pain affecting O26.899; R10.9
== END 2021-08-25 15:05 | disposition home or self-care (01) ==
LOC: 4S1 08:04 → OPB 08:04 → 4S1 08:06

== ENCOUNTER 2021-09-29 07:35 | Inpatient (IN) ==
[2021-09-29] MEDS ORDERED: OXYTOCIN 30 UNITS/500 ML BAG IV PRN ×2 (08:43→09:05)
[2021-09-29 09:19] LABS: Hematocrit (blood only) 35.8 % (37-47); Hemoglobin 11.8 g/dL (12.0-16.0); Mean Corpuscular Hemoglobin 29.4 pg (25-34); Mean Corpuscular Volume 89.1 fL (80-100); Mean Platelet Volume 10.2 fL (7.4-10.4); Platelet Count 162 K/uL (130-400); RDW Coefficient of Variation 14.6 % (11.5-14.5); RDW Standard Deviation 47.2 fL (36.4-46.3); Red Blood Count 4.02 M/uL (4.2-5.4); White Blood Count 18.37 K/uL (4.8-10.8)
--- NOTE | 2021-09-29 09:33 | History & Physical Report ---
Date of Service September 29, 2021 Assessment & Plan (1) Supervision of normal intrauterine in primigravida: (2) Rh negative status during : Plan: Elizabeth is a 30-year-old at 40 weeks 2 days gestational age presents for induction of labor. 1. Fetus: Cat 1 2. Labor: S/p Nair. Oxytocin per protocol 3. GBS negative 4. Vitals: WNL Admission and Anticipated Discharge Date Admission Date: September 29, 2021 History of Present Illness Primary Care Provider: NO PCP Elizabeth is a 30-year-old currently at 40 weeks 2 days gestational age presents for induction labor. Patient has a course complicated by Rh-negative receiving RhoGAM at 28 weeks. is otherwise been uncomplicated. Patient had cervical ripening Nair placed last night. Allergies Allergy/AdvReac Type Severity Reaction Status Date / Time No Known Allergies Allergy Verified 09/28/21 19:35 Home Medications Medication Instructions Recorded Confirmed Type prenat.vits,mo,gtl-puri-hwaoa 1 tab PO DAILY 02/09/21 09/29/21 History ferrous sulfate 65 mg PO DAILY 07/31/21 09/28/21 History calcium carbonate [Tums] PO 08/21/21 09/28/21 History Patient History Medical History Asthma Childhood Surgical History (Updated 09/28/21 @ 19:35 by Carol Herrera RN) History of breast biopsy S/P tonsillectomy [place] teeth extracted 2011 Family History Father Diabetes Mother Lupus Asthma Aunt Breast cancer Other Dyslipidemia Hypertension Social History Smoking Status: Never smoker Second Hand Exposure: No; Do You Dip or Chew Tobacco: No; Tobacco Cessation Education Requested by Patient: No Hx Alcohol Use: No Hx Substance Use: No Preferred Language: Arabic Communication Ability: Effective 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 Nut 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 Required: No Beliefs That Will Affect Care: None marital status: marital status details: Ed (29) [phone] Current Living Situation: Spouse Current Living Situation Comment: Lives with and 2 dogs 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 Other 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 That Helps Us Care for You: No Feels Safe at Home: Yes Safety Concerns: Feels Safe At This Time Assistive Devices: None Physical Exam Gastrointestinal (Abdomen): Percussion/Palpation: abdomen soft; abdomen nontender, no guarding and abdomen not rigid Genitourinary: normal external appearance OB Exam Abdomen: + vertex Manual OB Exam: + cervical dilation 3 cm, + cervical effacement 50% and + station high OB Exam Monitor Tracing: + external FHT monitor used, + external uterine monitor used, + category I and + normal FHT variability; no early decelerations present, no late decelerations present and no variable decelerations Results & Data ([facility]) Vital Signs (Past 12 Hours) Vital Signs Temp Pulse Resp BP 09/29/21 07:42 36.8 C 85 18 128/65 09/29/21 07:40 85 128/65 Coding Level of Care Code None Diagnoses Supervision of normal intrauterine in primigravida Z34.00 Rh negative status during O26.899; Z67.91
[2021-09-29] MEDS ORDERED: ePHEDrine sulfate 50 MG/ML AMP ONE (10:37)
[2021-09-29] MEDS ORDERED: fentaNYL citrate 100 MCG/2 ML VIAL ONE (10:38)
[2021-09-29] MEDS ORDERED: BUPIVACAINE 0.25% 30 ML VIAL ONE (10:38)
[2021-09-29] MEDS ORDERED: fentaNYL 2MCG/ML ROPIVACAINE 1.25MG/ML 100 ML BAG EPI ONE (10:38)
[2021-09-29] MEDS ORDERED: SODIUM CHLORIDE 0.9% INJ 10 ML VIAL ONE (10:38)
[2021-09-29] MEDS: LACTATED RINGER'S 1,000 ML IV PRN ×3 (11:18→19:55)
--- NOTE | 2021-09-29 11:48 | Anesthesiology Consultation ---
Date of Service September 29, 2021 Assessment & Plan (1) Encounter for pre-operative examination: Chart Review Chart Review: Patient NOT seen in Pre Admission Testing and Acceptable Risk for Labor Epidural Consults Requested none History Height/Weight Height: 5 ft 4 in Weight: 97.522 kg Allergies Allergy/AdvReac Type Severity Reaction Status Date / Time No Known Allergies Allergy Verified 09/28/21 19:35 Medications Home Medications Medication Instructions Recorded Confirmed Last Taken prenat.vits,mo,nxi-lxwj-nolau 1 tab PO DAILY 02/09/21 09/29/21 09/29/21 07:00 ferrous sulfate 65 mg PO DAILY 07/31/21 09/29/21 09/28/21 08:00 calcium carbonate 200 mg calcium PO 09/29/21 Unknown (500 mg) chewable tablet (Tums) Active Medications Generic Name Dose Route Start Last Admin Trade Name Freq PRN Reason Stop Dose Admin Lactated Ringer's 1,000 mls @ 125 mls/hr 09/29/21 08:43 09/29/21 11:18 Lr IV 10/01/21 08:42 999 mls/hr .Q8H PRN Administration L&D Protocol Protocol Oxytocin 30 units in 500 mls @ 8 mls/hr 09/29/21 09:05 09/29/21 10:50 Pitocin IV 10/01/21 09:04 0.48 units/hr .Q24H PRN 8 mls/hr Labor Induction/Augmentation Titration Protocol 0.48 UNITS/HR Past Medical History Medical History Asthma Childhood Past Family History Family History Father Diabetes Mother Lupus Asthma Aunt Breast cancer Other Dyslipidemia Hypertension Past Surgical History Surgical History History of breast biopsy S/P tonsillectomy [place] teeth extracted 2011 Social History Smoking Status: Never smoker Do You Dip or Chew Tobacco: No Hx Alcohol Use: No Hx Substance Use: No substance use type: does not use Physical Exam Vital Signs Last Vital Signs Temp 36.8 C 09/29/21 07:42 Pulse 75 09/29/21 11:42 Resp 18 09/29/21 07:42 BP 141/86 H 09/29/21 11:33 Pulse Ox 100 09/29/21 11:42 Testing Laboratory Results 09/29/21 08:56
[2021-09-29] MEDS ORDERED: NALOXONE HCL 0.4 MG/1 ML VIAL/CARP IV PRN ×2 (12:30→21:58)
[2021-09-29] MEDS ORDERED: ONDANSETRON INJ 2 MG/ML 2 ML VIAL IV PRN ×2 (12:30→21:58)
[2021-09-29] MEDS ORDERED: NALBUPHINE HCL INJ 10 MG/ML AMP IV PRN ×2 (12:30→21:58)
[2021-09-29] MEDS ORDERED: fentaNYL 2MCG/ML ROPIVACAINE 1.25MG/ML 100 ML BAG EPI PRN (12:30)
[2021-09-29] MEDS ORDERED: diphenhydrAMINE 50 MG/ML VIAL IV PRN ×2 (12:30→21:58)
[2021-09-29] MEDS ORDERED: NALOXONE HCL 1 MG in SODIUM CHLORIDE 0.9% 1000ML 1,000 ML IV PRN ×2 (12:30→21:58)
[2021-09-29] MEDS ORDERED: ePHEDrine sulfate 50 MG/ML AMP IV PRN ×2 (12:30→21:58)
--- NOTE | 2021-09-29 12:56 | Labor Progress Brief Note ---
Date of Service September 29, 2021 Subjective Reason For Note: Routine Evaluation Assessment & Plan (1) Supervision of normal intrauterine in primigravida: (2) Rh negative status during : Plan: Elizabeth is a 30-year-old at 40 weeks 2 days gestational age presents for induction of labor. 1. Fetus: Cat 1 2. Labor: S/p Nair. Oxytocin per protocol, AROM 3. GBS negative 4. Vitals: WNL Admission and Anticipated Discharge Date Admission Date: September 29, 2021 Physical Exam Genitourinary: Manual OB Exam: + cervical dilation 4 cm, + cervical effacement 60%, + station high and + amniotic fluid OB Exam Monitor Tracing: + external FHT monitor used, + external uterine monitor used and + category I Results & Data ([facility]) Vital Signs (Past 12 Hours) Vital Signs Temp Pulse Resp BP Pulse Ox 09/29/21 12:52 80 100 09/29/21 12:47 80 100 09/29/21 12:45 102 H 133/76 09/29/21 12:42 83 99 09/29/21 12:37 101 H 100 09/29/21 12:32 74 98 09/29/21 12:28 102 H 123/68 09/29/21 12:27 99 H 127/69 99 09/29/21 12:26 104 H 124/70 09/29/21 12:23 96 H 135/76 09/29/21 12:22 97 H 98 09/29/21 12:21 88 127/66 09/29/21 12:20 103 H 131/71 09/29/21 12:18 97 H 132/68 09/29/21 12:17 93 H 99 09/29/21 12:16 77 131/61 09/29/21 12:14 79 133/61 09/29/21 12:12 87 100 09/29/21 12:11 93 H 128/90 09/29/21 12:10 75 127/83 09/29/21 12:07 78 99 09/29/21 12:06 74 136/87 09/29/21 12:04 73 135/82 09/29/21 12:02 73 100 09/29/21 11:57 79 99 09/29/21 11:55 78 140/78 09/29/21 11:52 90 95 09/29/21 11:49 79 139/85 09/29/21 11:47 75 100 09/29/21 11:42 75 100 09/29/21 11:37 70 99 09/29/21 11:33 73 141/86 H 09/29/21 11:32 71 100 09/29/21 11:27 72 100 09/29/21 11:22 70 100 09/29/21 11:12 77 98 09/29/21 11:07 76 99 09/29/21 11:02 79 99 09/29/21 10:57 73 97 09/29/21 10:52 75 99 09/29/21 10:47 76 138/76 98 09/29/21 10:01 82 129/74 09/29/21 09:25 86 128/74 09/29/21 07:42 36.8 C 85 18 128/65 09/29/21 07:40 36.8 C 85 18 128/65 Coding Level of Care Code None Diagnoses Supervision of normal intrauterine in primigravida Z34.00 Rh negative status during O26.899; Z67.91
--- NOTE | 2021-09-29 17:26 | Labor Progress Brief Note ---
Date of Service September 29, 2021 Subjective Reason For Note: Routine Evaluation, Change In Status and Monitor Concern Assessment & Plan (1) Supervision of normal intrauterine in primigravida: (2) Rh negative status during : Plan: Elizabeth is a 30-year-old at 40 weeks 2 days gestational age presents for induction of labor. 1. Fetus: Cat 2. Variable decels noted. Good variability 2. Labor: Progressing slowly, S/p Nair. Oxytocin per protocol, AROM 3. GBS negative 4. Vitals: WNL Admission and Anticipated Discharge Date Admission Date: September 29, 2021 Physical Exam Genitourinary: Manual OB Exam: + cervical dilation (4.5), + cervical effacement 70% and + station -2 OB Exam Monitor Tracing: + external FHT monitor used, + external uterine monitor used, + category I, + normal FHT variability and + variable decelerations Results & Data ([facility]) Vital Signs (Past 12 Hours) Vital Signs Temp Pulse Resp BP Pulse Ox 09/29/21 17:22 75 100 09/29/21 17:17 72 100 09/29/21 17:16 73 131/72 09/29/21 17:12 74 99 09/29/21 17:07 73 100 09/29/21 17:02 76 100 09/29/21 17:01 73 128/74 09/29/21 16:57 71 100 09/29/21 16:52 75 100 09/29/21 16:47 69 100 09/29/21 16:46 76 131/76 09/29/21 16:42 73 100 09/29/21 16:37 69 100 09/29/21 16:32 62 100 09/29/21 16:31 68 129/68 09/29/21 16:27 71 99 09/29/21 16:22 80 99 09/29/21 16:17 83 99 09/29/21 16:16 77 116/61 09/29/21 16:12 75 100 09/29/21 16:07 78 100 09/29/21 16:02 76 99 09/29/21 16:00 78 135/65 09/29/21 15:57 75 100 09/29/21 15:52 74 100 09/29/21 15:47 73 100 09/29/21 15:46 73 131/64 09/29/21 15:42 79 100 09/29/21 15:37 75 100 09/29/21 15:35 36.9 C 18 09/29/21 15:32 72 100 09/29/21 15:30 73 123/65 09/29/21 15:27 74 100 09/29/21 15:25 36.6 C 16 09/29/21 15:22 77 100 09/29/21 15:17 70 100 09/29/21 15:16 73 129/81 09/29/21 15:15 36.6 C 09/29/21 15:12 74 100 09/29/21 15:07 79 100 09/29/21 15:02 79 100 09/29/21 15:00 87 127/70 09/29/21 14:57 68 99 09/29/21 14:52 67 100 09/29/21 14:47 79 99 09/29/21 14:46 75 125/62 09/29/21 14:45 75 93 09/29/21 14:42 80 100 09/29/21 14:37 81 99 09/29/21 14:32 76 99 09/29/21 14:31 73 125/56 L 09/29/21 14:30 36.7 C 16 09/29/21 14:27 75 99 09/29/21 14:22 80 99 09/29/21 14:17 83 99 09/29/21 14:15 80 125/59 L 09/29/21 14:12 78 99 09/29/21 14:07 75 100 09/29/21 14:02 77 99 09/29/21 14:00 84 122/56 L 09/29/21 13:57 79 100 09/29/21 13:52 75 99 09/29/21 13:47 76 99 09/29/21 13:46 72 120/58 L 09/29/21 13:42 81 99 09/29/21 13:40 36.7 C 18 09/29/21 13:37 78 100 09/29/21 13:32 86 99 09/29/21 13:30 84 117/67 09/29/21 13:27 81 99 09/29/21 13:22 76 98 09/29/21 13:17 70 98 09/29/21 13:15 90 120/61 09/29/21 13:12 74 99 09/29/21 13:07 102 H 98 09/29/21 13:02 86 99 09/29/21 13:00 104 H 20 119/54 L 09/29/21 12:57 86 99 09/29/21 12:52 80 100 09/29/21 12:47 80 100 09/29/21 12:45 102 H 133/76 09/29/21 12:42 83 99 09/29/21 12:37 101 H 100 09/29/21 12:32 74 98 09/29/21 12:28 102 H 123/68 09/29/21 12:27 99 H 127/69 99 09/29/21 12:26 104 H 124/70 09/29/21 12:23 96 H 135/76 09/29/21 12:22 97 H 98 09/29/21 12:21 36.7 C 88 18 127/66 09/29/21 12:20 103 H 131/71 09/29/21 12:18 97 H 132/68 09/29/21 12:17 93 H 99 09/29/21 12:16 77 131/61 09/29/21 12:14 79 133/61 09/29/21 12:12 87 100 09/29/21 12:11 93 H 128/90 09/29/21 12:10 75 127/83 09/29/21 12:07 78 99 09/29/21 12:06 74 136/87 09/29/21 12:04 73 135/82 09/29/21 12:02 73 100 09/29/21 11:57 79 99 09/29/21 11:55 78 140/78 09/29/21 11:52 90 95 09/29/21 11:49 79 139/85 09/29/21 11:47 75 100 09/29/21 11:42 75 100 09/29/21 11:37 70 99 09/29/21 11:33 73 141/86 H 09/29/21 11:32 71 100 09/29/21 11:27 72 100 09/29/21 11:22 70 100 09/29/21 11:12 77 98 09/29/21 11:07 76 99 09/29/21 11:02 79 99 09/29/21 10:57 73 97 09/29/21 10:52 75 99 05/10/22 10:47 76 138/76 98 09/29/21 10:01 82 129/74 09/29/21 09:25 86 128/74 09/29/21 07:42 36.8 C 85 18 128/65 09/29/21 07:40 36.8 C 85 18 128/65 Coding Level of Care Code None Diagnoses Supervision of normal intrauterine in primigravida Z34.00 Rh negative status during O26.899; Z67.91
[2021-09-29] MEDS ORDERED: CITRIC ACID/SODIUM CITRATE 15 ML UDC ONE (21:03)
[2021-09-29] MEDS ORDERED: LIDOCAINE 2%/EPINEPHRINE 1:200,000 20 ML SDV ONE (21:07)
[2021-09-29] MEDS ORDERED: ceFAZolin 2000MG 2,000 MG/15 ML SYR IV SCH (21:15)
[2021-09-29] MEDS ORDERED: ONDANSETRON INJ 2 MG/ML 2 ML VIAL ONE (21:34)
[2021-09-29] MEDS ORDERED: OXYTOCIN 10 UNITS/ML 10ML VIAL ONE ×11 (21:42→21:54)
[2021-09-29] MEDS ORDERED: MoRPHine SULFATE PF 1 MG/ML 10 ML AMP/VIAL ONE (21:46)
[2021-09-29] MEDS ORDERED: KETOROLAC 30 MG/ML VIAL ONE (21:54)
[2021-09-29] MEDS ORDERED: MoRPHine SULFATE PF 1 MG/ML 10 ML AMP/VIAL EPI ONE (21:58)
[2021-09-29] MEDS ORDERED: ACETAMINOPHEN 1000 MG/100 ML IV IV PRN (21:58)
[2021-09-29] MEDS ORDERED: PROMETHAZINE HCL 25 MG in SODIUM CHLORIDE 0.9% 50 ML IV PRN (21:58)
[2021-09-29] MEDS ORDERED: LACTATED RINGER'S 500 ML IV PRN (21:58)
[2021-09-29] MEDS ORDERED: HYDROmorphone INJ 0.5 MG/0.5 ML SYR IV PRN (21:58)
[2021-09-29] MEDS ORDERED: NALOXONE HCL 0.08 MG in SYRINGE 1.8 ML IV PRN (21:58)
[2021-09-29] MEDS ORDERED: NO NARCOTICS OR SEDATIVES SCH (22:00)
[2021-09-29] MEDS ORDERED: DC INTRASPINAL MORPHINE SCH (22:00)
[2021-09-29] MEDS ORDERED: SODIUM CHLORIDE 0.9% 1000ML 1,000 ML IV SCH (22:00)
[2021-09-29] MEDS ORDERED: MAGNESIUM HYDROXIDE SUSP 30 ML UDC PO PRN (22:31)
[2021-09-29] MEDS ORDERED: SENNA 8.6 MG TAB PO PRN (22:31)
[2021-09-29] MEDS ORDERED: DIPHTHERIA/TETANUS/PERTUSSIS 0.5 ML SYR/VIAL IM ONE (22:31)
[2021-09-29] MEDS ORDERED: BENZOCAINE 20% AER SPR 82.5 GM CAN EXT PRN (22:31)
[2021-09-29] MEDS ORDERED: HYDROCORTISONE ACETATE 25 MG SUPP PR PRN (22:31)
--- NOTE | 2021-09-29 22:34 | Post Operative Brief Note ---
PG Immediate Post Op with CF Date of Surgery September 29, 2021 Pre & Post Diagnosis Operation Date: 09/29/21 20:50 Pre-Op Diagnosis: Intolerance to Labor remote from delivery Post-Op Diagnosis: Same as Pre Op I identified the patient and participated in the time-out.: Yes Procedure Operation Date: 09/29/21 20:50 Actual Procedures p Primary Section in LD for the of a live male child at 2143. - Yuri Rojo MD Surgeon Yuri Rojo MD Client Operations Manager none Estimated Blood Loss 600 Findings Consistent with Post-Op Diagnosis Specimens Specimen Description: 1.) Cord Blood 2.) Placenta - Hold Drains Nair Catheter OB Procedure charges OB Charges 54699
[2021-09-29] MEDS ORDERED: LACTATED RINGER'S 1,000 ML IV SCH (22:45)
--- NOTE | 2021-09-29 22:46 | Anesthesia Procedure Note ---
Date of Service September 29, 2021 Anesthesia Post Epidural Note Vital Signs Vital Signs: Temp Pulse Resp BP Pulse Ox 37.3 C 84 18 116/59 L 98 09/29/21 19:01 09/29/21 22:40 09/29/21 19:01 09/29/21 22:40 09/29/21 22:40 Pain Intensity Abdomen: Pain Intensity: 2 Notes Mental Status: alert / awake / arousable and participated in evaluation Nausea / Vomiting: adequately controlled Pain: adequately controlled Airway Patency, RR, SpO2: stable & adequate BP & HR: stable & adequate Hydration State: stable & adequate Neuraxial Anesthesia: was administered and sensory block is resolving Anesthetic Complications: no major complications apparent and Pt Satisfied with anesthetic care Epidural: Removed without complications and With tip intact
--- NOTE | 2021-09-29 22:47 | Anesthesiology Progress Note ---
Date of Service September 29, 2021 Anesthesia Post Procedure Vital Signs Vital Signs: Temp Pulse Resp BP Pulse Ox 09/29/21 22:40 84 116/59 L 98 09/29/21 21:16 86 141/77 H 09/29/21 21:12 83 99 09/29/21 21:07 72 100 09/29/21 21:02 86 100 09/29/21 21:01 78 141/80 H 09/29/21 20:57 85 99 09/29/21 20:52 89 99 09/29/21 20:47 86 100 09/29/21 20:46 87 130/60 09/29/21 20:43 99 H 90 09/29/21 20:42 99 H 97 09/29/21 20:37 96 H 99 09/29/21 20:32 79 98 09/29/21 20:31 77 119/57 L 09/29/21 20:27 78 100 09/29/21 20:22 83 100 09/29/21 20:17 91 H 100 09/29/21 20:15 81 130/71 09/29/21 20:12 87 100 09/29/21 20:07 76 100 09/29/21 20:02 78 99 09/29/21 20:00 75 127/66 09/29/21 19:57 76 100 09/29/21 19:52 74 100 09/29/21 19:47 79 100 09/29/21 19:45 79 117/60 09/29/21 19:42 79 100 09/29/21 19:37 81 100 09/29/21 19:32 84 100 09/29/21 19:31 78 126/68 09/29/21 19:27 80 100 09/29/21 19:22 81 100 09/29/21 19:17 86 100 09/29/21 19:16 81 134/72 09/29/21 19:12 86 100 09/29/21 19:07 84 99 09/29/21 19:02 80 100 09/29/21 19:01 37.3 C 18 09/29/21 19:00 78 124/63 09/29/21 18:57 87 100 09/29/21 18:52 77 99 09/29/21 18:47 78 100 09/29/21 18:45 80 109/57 L 09/29/21 18:42 74 100 09/29/21 18:37 75 100 09/29/21 18:32 75 100 09/29/21 18:30 82 117/56 L 09/29/21 18:27 92 H 100 09/29/21 18:22 83 100 09/29/21 18:17 81 100 09/29/21 18:15 82 114/56 L 09/29/21 18:12 76 100 09/29/21 18:07 78 100 09/29/21 18:05 37.0 C 18 09/29/21 18:02 83 100 09/29/21 18:00 83 114/62 09/29/21 17:57 85 100 09/29/21 17:52 71 100 09/29/21 17:47 70 100 09/29/21 17:46 73 130/76 09/29/21 17:42 70 100 09/29/21 17:37 66 100 09/29/21 17:32 74 100 09/29/21 17:31 75 128/76 09/29/21 17:27 77 100 09/29/21 17:24 36.9 C 18 09/29/21 17:22 75 100 09/29/21 17:17 72 100 09/29/21 17:16 73 131/72 09/29/21 17:12 74 99 09/29/21 17:07 73 100 09/29/21 17:02 76 100 09/29/21 17:01 73 128/74 09/29/21 16:57 71 100 09/29/21 16:52 75 100 09/29/21 16:47 69 100 09/29/21 16:46 76 131/76 09/29/21 16:42 73 100 09/29/21 16:37 69 100 09/29/21 16:32 62 100 09/29/21 16:31 68 129/68 09/29/21 16:27 71 99 09/29/21 16:22 80 99 09/29/21 16:17 83 99 09/29/21 16:16 77 116/61 09/29/21 16:12 75 100 09/29/21 16:07 78 100 09/29/21 16:02 76 99 09/29/21 16:00 78 135/65 09/29/21 15:57 75 100 09/29/21 15:52 74 100 09/29/21 15:47 73 100 09/29/21 15:46 73 131/64 09/29/21 15:42 79 100 09/29/21 15:37 75 100 09/29/21 15:35 36.9 C 18 09/29/21 15:32 72 100 09/29/21 15:30 73 123/65 09/29/21 15:27 74 100 09/29/21 15:25 36.6 C 16 09/29/21 15:22 77 100 09/29/21 15:17 70 100 09/29/21 15:16 73 129/81 09/29/21 15:15 36.6 C 09/29/21 15:12 74 100 09/29/21 15:07 79 100 09/29/21 15:02 79 100 09/29/21 15:00 87 127/70 09/29/21 14:57 68 99 09/29/21 14:52 67 100 09/29/21 14:47 79 99 09/29/21 14:46 75 125/62 09/29/21 14:45 75 93 09/29/21 14:42 80 100 09/29/21 14:37 81 99 09/29/21 14:32 76 99 09/29/21 14:31 73 125/56 L 09/29/21 14:30 36.7 C 16 09/29/21 14:27 75 99 09/29/21 14:22 80 99 09/29/21 14:17 83 99 09/29/21 14:15 80 125/59 L 09/29/21 14:12 78 99 09/29/21 14:07 75 100 09/29/21 14:02 77 99 09/29/21 14:00 84 122/56 L 09/29/21 13:57 79 100 09/29/21 13:52 75 99 09/29/21 13:47 76 99 09/29/21 13:46 72 120/58 L 09/29/21 13:42 81 99 09/29/21 13:40 36.7 C 18 09/29/21 13:37 78 100 09/29/21 13:32 86 99 09/29/21 13:30 84 117/67 09/29/21 13:27 81 99 09/29/21 13:22 76 98 05/10/22 13:17 70 98 09/29/21 13:15 90 120/61 09/29/21 13:12 74 99 09/29/21 13:07 102 H 98 09/29/21 13:02 86 99 09/29/21 13:00 104 H 20 119/54 L 09/29/21 12:57 86 99 09/29/21 12:52 80 100 09/29/21 12:47 80 100 09/29/21 12:45 102 H 133/76 09/29/21 12:42 83 99 09/29/21 12:37 101 H 100 09/29/21 12:32 74 98 09/29/21 12:28 102 H 123/68 09/29/21 12:27 99 H 127/69 99 09/29/21 12:26 104 H 124/70 09/29/21 12:23 96 H 135/76 09/29/21 12:22 97 H 98 09/29/21 12:21 36.7 C 88 18 127/66 09/29/21 12:20 103 H 131/71 09/29/21 12:18 97 H 132/68 09/29/21 12:17 93 H 99 09/29/21 12:16 77 131/61 09/29/21 12:14 79 133/61 09/29/21 12:12 87 100 09/29/21 12:11 93 H 128/90 09/29/21 12:10 75 127/83 09/29/21 12:07 78 99 09/29/21 12:06 74 136/87 09/29/21 12:04 73 135/82 09/29/21 12:02 73 100 09/29/21 11:57 79 99 09/29/21 11:55 78 140/78 09/29/21 11:52 90 95 09/29/21 11:49 79 139/85 09/29/21 11:47 75 100 09/29/21 11:42 75 100 09/29/21 11:37 70 99 09/29/21 11:33 73 141/86 H 09/29/21 11:32 71 100 09/29/21 11:27 72 100 09/29/21 11:22 70 100 09/29/21 11:12 77 98 09/29/21 11:07 76 99 05/10/22 11:02 79 99 09/29/21 10:57 73 97 09/29/21 10:52 75 99 09/29/21 10:47 76 138/76 98 09/29/21 10:01 82 129/74 09/29/21 09:25 86 128/74 09/29/21 07:42 36.8 C 85 18 128/65 09/29/21 07:40 36.8 C 85 18 128/65 Pain Intensity Abdomen: Pain Intensity: 2 Transfer of Care Handoff Completed per policy Notes Mental Status: alert / awake / arousable and participated in evaluation Nausea / Vomiting: adequately controlled Pain: adequately controlled Airway Patency, RR, SpO2: stable & adequate BP & HR: stable & adequate Hydration State: stable & adequate Neuraxial Anesthesia: was administered and sensory block is resolving Anesthetic Complications: no major complications apparent and Pt Satisfied with anesthetic care
[2021-09-29] MEDS: OXYTOCIN 20 UNITS in LACTATED RINGER'S 1,000 ML IV SCH (23:43)
[2021-09-30] MEDS: KETOROLAC 30 MG/ML VIAL IV PRN ×2 (04:25→10:52)
[2021-09-30 06:19] LABS: Basophils # (auto) 0.02 K/uL (0-0.2); Basophils % (auto) 0.1 %; Eosinophils # (auto) 0.02 K/uL (0-0.5); Eosinophils % (auto) 0.1 %; Hematocrit (blood only) 31.1 % (37-47); Hemoglobin 10.2 g/dL (12.0-16.0); Immature Granulocytes # (auto) 0.11 K/uL (0.00-0.02); Immature Granulocytes % (auto) 0.6 %; Mean Corpuscular Hemoglobin 29.6 pg (25-34); Mean Corpuscular Hgb Conc 32.8 g/dL (32-36); Mean Corpuscular Volume 90.1 fL (80-100); Mean Platelet Volume 10.1 fL (7.4-10.4); Monocytes # (auto) 0.74 K/uL (0.11-0.59); Monocytes % (auto) 3.9 %; Neutrophils # (auto) 16.42 K/uL (1.4-6.5); Neutrophils % (auto) 87.3 %; Platelet Count 132 K/uL (130-400); RDW Coefficient of Variation 14.5 % (11.5-14.5); Red Blood Count 3.45 M/uL (4.2-5.4); White Blood Count 18.81 K/uL (4.8-10.8)
--- NOTE | 2021-09-30 07:33 | Obstetrical Progress Note ---
Date of Service <Luis Cox DO - Last Filed: 09/30/21 08:31> September 30, 2021 Assessment & Plan <Luis Cox DO - Last Filed: 09/30/21 08:31> (1) Encounter for care and examination after delivery: 30 yo post op day 1 from , doing well. -Continue routine post care. -vital signs reviewed and WNL. (Tmax 37.3) -Blood type O-, GBS negative, Rubella Immune -Encourage ambulation, monitor and control pain with Motrin, tylenol PRN, resume regular diet, monitor lochia. -Advance diet as tolerated. -encourage breast feeding. -hemoglobin 10.2 <Yuri Rojo MD - Last Filed: 09/30/21 09:24> (1) Encounter for care and examination after delivery: Subjective <Luis Cox - Last Filed: 09/30/21 08:31> Ambulation: limited ambulation Voiding: ramirez catheter in place Passing Gas:: Yes Diet Tolerance:: NPO Lochia:: Small Feeding Type:: breast feeding Current Pain Level(1-10): 2 Review of Systems Denies fever, chills, sweats Denies shortness of breath, difficulty breathing, chest pain, palpitations, chest pressure. Denies breast pain. Denies dysuria. Denies headache or changes in vision Physical Exam <Luis Cox DO - Last Filed: 09/30/21 08:31> General: Alert, oriented. No acute distress. Cardiac: Regular rate and rhythm, no murmurs/rubs/gallops. Respiratory: Clear to auscultation bilaterally a/p, no wheezes/rales/rhonchi. No increased work of breathing. Symmetrical chest rise. No respiratory distress. Abdomen: Soft, nontender, nondistended. Bowel sounds present. Uterus: Uterine fundus firm, palpable at umbilicus. Surgical scar clean and healing well. Lower Extremities: No lower extremity edema or swelling. No deep calf pain. [place]'s negative bilaterally Results & Data ([facility]) <Luis Cox - Last Filed: 09/30/21 08:31> Vital Signs (Past 12 Hours) Vital Signs Temp Pulse Resp BP Pulse Ox 09/30/21 06:00 18 99 09/30/21 05:00 18 98 09/30/21 04:00 20 98 09/30/21 03:00 18 97 09/30/21 02:00 20 99 09/30/21 01:45 18 99 09/30/21 01:30 20 98 09/30/21 01:15 18 99 09/30/21 00:49 70 123/60 09/30/21 00:45 82 98 09/30/21 00:40 90 98 09/30/21 00:35 91 H 140/67 99 09/30/21 00:30 95 H 99 09/30/21 00:25 90 98 09/30/21 00:20 84 98 09/30/21 00:15 37.1 C 91 H 18 140/67 99 09/30/21 00:10 85 127/75 99 09/30/21 00:05 87 98 09/30/21 00:00 80 121/58 L 98 09/29/21 23:55 81 99 09/29/21 23:50 77 98 09/29/21 23:49 83 129/64 09/29/21 23:45 88 98 09/29/21 23:40 86 129/58 L 98 09/29/21 23:35 84 98 09/29/21 23:30 85 99 09/29/21 23:29 91 H 117/65 09/29/21 23:25 98 H 98 09/29/21 23:20 88 98 09/29/21 23:19 119/66 09/29/21 23:15 76 99 09/29/21 23:10 88 99 09/29/21 23:09 82 114/63 09/29/21 23:05 76 98 09/29/21 23:00 85 98 09/29/21 22:59 79 112/58 L 09/29/21 22:55 85 98 09/29/21 22:49 86 111/59 L 09/29/21 22:40 84 116/59 L 98 09/29/21 21:16 86 141/77 H 09/29/21 21:12 83 99 09/29/21 21:07 72 100 09/29/21 21:02 86 100 09/29/21 21:01 78 141/80 H 09/29/21 20:57 85 99 09/29/21 20:52 89 99 09/29/21 20:47 86 100 09/29/21 20:46 87 130/60 09/29/21 20:43 99 H 90 09/29/21 20:42 99 H 97 09/29/21 20:37 96 H 99 09/29/21 20:32 79 98 09/29/21 20:31 77 119/57 L 09/29/21 20:27 78 100 09/29/21 20:22 83 100 09/29/21 20:17 91 H 100 09/29/21 20:15 81 130/71 09/29/21 20:12 87 100 09/29/21 20:07 76 100 09/29/21 20:02 78 99 09/29/21 20:00 75 127/66 09/29/21 19:57 76 100 09/29/21 19:52 74 100 09/29/21 19:47 79 100 09/29/21 19:45 79 117/60 09/29/21 19:42 79 100 09/29/21 19:37 81 100 09/29/21 19:32 84 100 09/29/21 19:31 78 126/68 <Yuri Rojo MD - Last Filed: 09/30/21 09:24> Co-Signing Physician Notes Patient seen and evaluated and agree with above assessment and plan. Routine care Resident Activity Tracking <Luis Cox DO - Last Filed: 09/30/21 08:31> Resident Involvement: Resident Care Provided Care Provided: OB Delivery
[2021-09-30] MEDS: PRENATAL VITAMIN 1 TAB PO SCH (08:32)
[2021-09-30] MEDS: DOCUSATE SODIUM 100 MG CAP PO SCH ×2 (08:32→20:11)
[2021-09-30] MEDS: FERROUS SULFATE 325 MG TAB PO SCH (08:32)
[2021-09-30] MEDS: SIMETHICONE 80 MG CHEW PO SCH ×4 (08:32→20:11)
[2021-09-30] MEDS: OXYTOCIN 20 UNITS in LACTATED RINGER'S 1,000 ML IV SCH (08:56)
[2021-09-30] MEDS ORDERED: diphenhydrAMINE 50 MG/ML VIAL IV PRN (15:58)
[2021-09-30] MEDS ORDERED: ONDANSETRON INJ 2 MG/ML 2 ML VIAL IV PRN (15:58)
[2021-09-30] MEDS ORDERED: diphenhydrAMINE Capsule 25 MG CAP PO PRN (15:58)
[2021-09-30] MEDS ORDERED: PROMETHAZINE HCL 25 MG in SODIUM CHLORIDE 0.9% 50 ML IV PRN (15:58)
[2021-09-30] MEDS ORDERED: KETOROLAC 30 MG/ML VIAL IV PRN (15:58)
[2021-09-30] MEDS: oxyCODONE/ACETAMINOPHEN 5mg/325mg TAB PO PRN ×2 (17:42→21:46)
[2021-09-30] MEDS ORDERED: bisacodyL 5 MG TABEC PO SCH (20:00)
[2021-09-30] MEDS: IBUPROFEN 600 MG TAB PO PRN (21:47)
[2021-10-01] MEDS: oxyCODONE/ACETAMINOPHEN 5mg/325mg TAB PO PRN ×5 (02:04→23:30)
[2021-10-01] MEDS: IBUPROFEN 600 MG TAB PO PRN ×5 (02:04→23:30)
[2021-10-01 06:58] LABS: Hematocrit (blood only) 29.4 % (37-47); Hemoglobin 9.5 g/dL (12.0-16.0)
--- NOTE | 2021-10-01 07:33 | Obstetrical Progress Note ---
Date of Service <Luis Cox DO - Last Filed: 10/01/21 07:33> October 01, 2021 Assessment & Plan <Luis Cox DO - Last Filed: 10/01/21 07:33> (1) Encounter for care and examination after delivery: 30 yo post op day 2 from , doing well. -Continue routine post care. -vital signs reviewed and WNL. (Tmax 37.3) -Blood type O-, GBS negative, Rubella Immune -Encourage ambulation, monitor and control pain with Motrin, tylenol PRN, resume regular diet, monitor lochia. -encourage breast feeding. -hemoglobin 9.5 <Lea Whitt MD, FACOG - Last Filed: 10/01/21 07:34> (1) Encounter for care and examination after delivery: Subjective <Luis Cox DO - Last Filed: 10/01/21 07:33> Ambulation: ambulating normally Voiding: no voiding problems Passing Gas:: Yes Diet Tolerance:: regular diet Lochia:: Small Feeding Type:: breast feeding Current Pain Level(1-10): 2 Review of Systems Denies fever, chills, sweats Denies shortness of breath, difficulty breathing, chest pain, palpitations, chest pressure. Denies breast pain. Denies dysuria. Denies headache or changes in vision Physical Exam <Luis Cox DO - Last Filed: 10/01/21 07:33> General: Alert, oriented. No acute distress. Cardiac: Regular rate and rhythm, no murmurs/rubs/gallops. Respiratory: Clear to auscultation bilaterally a/p, no wheezes/rales/rhonchi. No increased work of breathing. Symmetrical chest rise. No respiratory distress. Abdomen: Soft, nontender, nondistended. Bowel sounds present. Uterus: Uterine fundus firm, palpable 2cm below umbilicus. Surgical scar clean and healing well. Lower Extremities: No lower extremity edema or swelling. No deep calf pain. [place]'s negative bilaterally Results & Data ([facility]) <Luis Cox DO - Last Filed: 10/01/21 07:33> Vital Signs (Past 12 Hours) Vital Signs Temp Pulse Resp BP Pulse Ox 09/30/21 23:05 36.9 C 90 16 119/68 99 <Lea Whitt MD, FACOG - Last Filed: 10/01/21 07:34> Co-Signing Physician Notes Resident Physician Supervision Note: I was present with Dr. Cox during the history and exam. I discussed the case with the resident and agree with the findings and plan as documented in the note. Any exceptions or clarifications are listed here: [None] Documented By: Lea Whitt MD, FACOG Resident Activity Tracking <Luis Cox DO - Last Filed: 10/01/21 07:33> Resident Involvement: Resident Care Provided Care Provided: OB Delivery
[2021-10-01] MEDS: SIMETHICONE 80 MG CHEW PO SCH ×4 (08:12→20:13)
[2021-10-01] MEDS: FERROUS SULFATE 325 MG TAB PO SCH (08:12)
[2021-10-01] MEDS: DOCUSATE SODIUM 100 MG CAP PO SCH ×2 (08:12→20:13)
[2021-10-01] MEDS: PRENATAL VITAMIN 1 TAB PO SCH (08:12)
[2021-10-01] MEDS ORDERED: bisacodyL 10 MG SUPP PR PRN (22:31)
--- NOTE | 2021-10-02 05:42 | Obstetrical Progress Note ---
Date of Service <Luis Cox DO - Last Filed: 10/02/21 07:23> October 02, 2021 Assessment & Plan <Luis Cox DO - Last Filed: 10/02/21 07:23> (1) Encounter for care and examination after delivery: 30 yo post op day 3 from , doing well. -Continue routine post care. -vital signs reviewed and WNL. (Tmax 37.3) -Blood type O-, GBS negative, Rubella Immune -Encourage ambulation, monitor and control pain with Motrin, tylenol PRN, resume regular diet, monitor lochia. -encourage breast feeding. -Discussed discharge with patient. Patient will follow up with Dr. Rojo in 6 weeks. <Rachel Pacheco MD - Last Filed: 10/02/21 07:19> (1) Encounter for care and examination after delivery: Subjective <Luis Cox - Last Filed: 10/02/21 07:23> Ambulation: ambulating normally Voiding: no voiding problems Passing Gas:: Yes Diet Tolerance:: regular diet Lochia:: Small Feeding Type:: breast feeding Current Pain Level(1-10): 0 Review of Systems Denies fever, chills, sweats Denies shortness of breath, difficulty breathing, chest pain, palpitations, chest pressure. Denies breast pain. Denies dysuria. Denies headache or changes in vision Physical Exam <Luis Cox DO - Last Filed: 10/02/21 07:23> General: Alert, oriented. No acute distress. Cardiac: Regular rate and rhythm, no murmurs/rubs/gallops. Respiratory: Clear to auscultation bilaterally a/p, no wheezes/rales/rhonchi. No increased work of breathing. Symmetrical chest rise. No respiratory distress. Abdomen: Soft, nontender, nondistended. Bowel sounds present. Uterus: Uterine fundus firm, palpable 2cm below umbilicus. Surgical scar clean and healing well. Lower Extremities: No deep calf pain. Results & Data ([facility]) <Luis Cox - Last Filed: 10/02/21 07:23> Vital Signs (Past 12 Hours) Vital Signs Temp Pulse Resp BP Pulse Ox 10/01/21 23:14 36.6 C 83 16 130/79 99 10/01/21 19:12 36.6 C 86 99 H 131/86 99 <Rachel Pacheco MD - Last Filed: 10/02/21 07:19> Co-Signing Physician Notes Resident Physician Supervision Note: I interviewed and examined the patient. Discussed with Dr. Cox and agree with findings and plan as documented in the note. Any exceptions or clarifications are listed here: [ ] Documented By: Rachel Pacheco MD, FACOG Resident Activity Tracking <Luis Cox DO - Last Filed: 10/02/21 07:23> Resident Involvement: Resident Care Provided Care Provided: OB Delivery
[2021-10-02] MEDS: oxyCODONE/ACETAMINOPHEN 5mg/325mg TAB PO PRN (06:00)
[2021-10-02] MEDS: IBUPROFEN 600 MG TAB PO PRN (06:00)
[2021-10-02] MEDS: DOCUSATE SODIUM 100 MG CAP PO SCH (08:15)
[2021-10-02] MEDS: PRENATAL VITAMIN 1 TAB PO SCH (08:16)
[2021-10-02] MEDS: SIMETHICONE 80 MG CHEW PO SCH (08:16)
[2021-10-02] MEDS: FERROUS SULFATE 325 MG TAB PO SCH (08:16)
== END 2021-10-02 14:00 | disposition home or self-care (01) | DRG 788 ==
LOC: 4S1 07:35 → 4E2 09-30 00:59

== ENCOUNTER 2023-12-13 09:50 | Inpatient (IN) ==
[2023-12-13] MEDS: LACTATED RINGER'S 1,000 ML IV SCH ×2 (10:15→21:25)
[2023-12-13] MEDS ORDERED: SODIUM CHLORIDE 0.9% 250 ML IV PRN (10:17)
--- NOTE | 2023-12-13 10:29 | Anesthesiology Consultation ---
Date of Service December 13, 2023 Assessment & Plan Chart Review Chart Review: Acceptable Risk for Surgery Consults Requested none ASA ASA2 Proposed Anesthesia Anesthesia Type: Spinal Risk / Benefits Reviewed With: PT / POA / Parent / Guardian, Accepts Plan and Informed Consent Obtained History Surgery Operation Date: 12/13/23 10:25 Proposed Procedures p Section in - Rachel Pacheco MD Height/Weight Height: 5 ft 4 in Weight: 97.069 kg Allergies Allergy/AdvReac Type Severity Reaction Status Date / Time No Known Allergies Allergy Verified 12/13/23 08:53 Medications Home Medications Medication Instructions Recorded Confirmed Last Taken breast pump #1 ea 10/03/23 12/13/23 Unknown calcium carbonate (Tums) 200 mg PO BID 12/12/23 12/13/23 12/11/23 vits no.124-ferrous fum 1 tab PO DAILY 12/12/23 12/13/23 12/11/23 27 mg iron-folic acid 800 mcg tablet ( Vitamin) NPO Date Last Intake of Fluids: 12/13/23 Time Last Intake of Fluids: 00:00 Date Last Intake of Solids: 12/12/23 Time Last Intake of Solids: 20:00 Past Medical History Medical History Hydronephrosis Asthma Childhood Exercise / Class Metabolic Activity II 4-5 Yardwork/Stairs/Walk up hill Past Family History Family History Father Diabetes Mother Lupus Asthma Aunt Breast cancer Son RONAK (juvenile idiopathic arthritis) Other Dyslipidemia Hypertension Denies family history of Ovarian cancer Colorectal cancer Past Surgical History Surgical History S/P section [place] teeth extracted 2011 S/P tonsillectomy History of breast biopsy Past Anesthesia History No Hx of Anesthesia Complications and No Family Hx of Anesthesia Complications History of PONV No Hx of PONV and No Hx of Motion Sickness Social History Smoking Status: Never smoker Do You Dip or Chew Tobacco: No Hx Alcohol Use: No Hx Substance Use: No substance use type: does not use Physical Exam Vital Signs Last Vital Signs Temp 98.4 F 12/13/23 10:02 Pulse 91 H 12/13/23 10:00 Resp 20 12/13/23 10:02 BP 133/83 12/13/23 10:00 ENMT Mouth: no dentition abnormality Thyromental Distance: > or= 3.5 Finger Breadths Mallampati Class: II Neck normal visual inspection Respiratory normal respiratory effort Auscultation: lungs clear to auscultation bilaterally Cardiovascular Rate/Rhythm: regular rate and regular rhythm
--- NOTE | 2023-12-13 10:33 | History & Physical Report ---
Date of Service December 13, 2023 Assessment & Plan (1) Preeclampsia: Plan: For RCS as she is preeclampsia >37wk, and patient also desires salpingectomy for sterilization. Confirmed consent with patient and FOB. History of Present Illness Primary Care Provider: NO PCP 33yo with prior section, now dx with preeclampsia without severe features based on two consecutive days with HTN-level BP at visits and a urine pr/cr ratio of 1.2. Serum labs reassuring, and patient not symptomatic at this time. Allergies Allergy/AdvReac Type Severity Reaction Status Date / Time No Known Allergies Allergy Verified 12/13/23 08:53 Home Medications Medication Instructions Recorded Confirmed Type breast pump #1 ea 10/03/23 12/13/23 Rx calcium carbonate (Tums) 200 mg PO BID 12/12/23 12/13/23 History vits no.124-ferrous fum 1 tab PO DAILY 12/12/23 12/13/23 History 27 mg iron-folic acid 800 mcg tablet ( Vitamin) Past Med/Surg History Problem List (Updated 12/13/23 @ 10:37 by Rachel Pacheco MD) Preeclampsia Elevated BP without diagnosis of hypertension 37 weeks gestation of Hypertension affecting in third trimester Need for rhogam due to Rh negative mother Previous delivery affecting , antepartum Foot sprain (Acute) Medical History Hydronephrosis Asthma Childhood Surgical History S/P section [place] teeth extracted 2011 S/P tonsillectomy History of breast biopsy Family History Father Diabetes Mother Lupus Asthma Aunt Breast cancer Son RONAK (juvenile idiopathic arthritis) Other Dyslipidemia Hypertension Denies family history of Ovarian cancer Colorectal cancer Social History Smoking Status: Never smoker Second Hand Exposure: No; Do You Dip or Chew Tobacco: No; Hx Alcohol Use: No Hx Substance Use: No Preferred Language: Irish Communication Ability: Effective Medical Support Assistant Required: No Beliefs That Will Affect Care: None marital status: marital status details: Ed Woodruff(31) [phone] Current Living Situation: Family Current Living Situation Comment: and 2 yo son 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
[2023-12-13] MEDS ORDERED: DEXAMETHASONE SOD INJ 4 MG/ML VIAL ONE (10:40)
[2023-12-13] MEDS ORDERED: MoRPHine SULFATE PF 1 MG/ML 10 ML AMP/VIAL ONE (10:40)
[2023-12-13] MEDS ORDERED: ONDANSETRON INJ 2 MG/ML 2 ML VIAL ONE (10:40)
[2023-12-13] MEDS ORDERED: fentaNYL citrate PF 100 MCG/2 ML VIAL ONE (10:40)
[2023-12-13] MEDS ORDERED: OXYTOCIN 10 UNITS/ML VIAL ONE (10:42)
[2023-12-13] MEDS: CITRIC ACID/SODIUM CITRATE 15 ML UDC ONE (10:57)
[2023-12-13] MEDS: ceFAZolin 3000MG 3,000 MG/72.5 ML BAG IV SCH (11:00)
[2023-12-13 11:15] LABS: Hematocrit (blood only) 35.3 % (37.0-47.0); Hemoglobin 11.7 g/dl (12.0-16.0); Mean Corpuscular Hemoglobin 29.7 pg (25.0-34.0); Mean Corpuscular Hgb Conc 33.1 g/dL (32.0-36.0); Mean Corpuscular Volume 89.6 fL (80.0-100.0); Mean Platelet Volume 9.4 fL (9.4-12.4); Platelet Count 184 K/uL (130-400); RDW Coefficient of Variation 13.5 % (11.5-14.5); RDW Standard Deviation 44.2 fL (36.4-46.3); Red Blood Count 3.94 M/uL (4.20-5.40); White Blood Count 12.12 K/ul (4.8-10.8)
[2023-12-13] MEDS ORDERED: LACTATED RINGER'S 500 ML IV PRN (11:17)
[2023-12-13] MEDS ORDERED: NALOXONE HCL 0.4 MG/1 ML VIAL/CARP IV PRN (11:17)
[2023-12-13] MEDS ORDERED: ePHEDrine sulfate 50 MG/ML AMP IV PRN (11:17)
[2023-12-13] MEDS ORDERED: NALBUPHINE HCL 5 MG in SYRINGE 0 ML IV PRN (11:17)
[2023-12-13] MEDS ORDERED: NALOXONE HCL 0.08 MG in SYRINGE 1.8 ML IV PRN (11:17)
[2023-12-13] MEDS ORDERED: ONDANSETRON INJ 2 MG/ML 2 ML VIAL IV PRN (11:17)
[2023-12-13] MEDS ORDERED: NALOXONE HCL 1 MG in SODIUM CHLORIDE 0.9% 1,000 ML IV PRN (11:17)
[2023-12-13] MEDS ORDERED: KETOROLAC 30 MG/ML VIAL ONE (11:28)
[2023-12-13] MEDS ORDERED: NO NARCOTICS OR SEDATIVES SCH (11:30)
[2023-12-13] MEDS ORDERED: DC INTRASPINAL MORPHINE SCH (11:30)
[2023-12-13] MEDS ORDERED: SODIUM CHLORIDE 0.9% 1,000 ML IV SCH (11:30)
[2023-12-13 12:13] LABS: Base Excess Cord Arterial Bld -3.5 mEq/L (-9-1.8); CO2 Cord Arterial Blood 58 mmHg (39.1-73.5); HCO3 Cord Arterial Blood 25 mmol/L (19.7-28.5); Oxygen Sat Cord Arterial Blood < 60.0 % (<60); PO2 Cord Arterial Blood < 20 mmHg (4.1-31.7); pH Cord Arterial Blood 7.24 (7.1-7.38)
[2023-12-13 12:17] LABS: Base Excess Cord Venous Blood -2.5 mEq/L (-7.7-1.9); Cord Venous Blood HCO3 24 mmol/L (18.4-26.8); Cord Venous Blood PCO2 48 mmHg (30.4-57.2); Cord Venous Blood PO2 < 20 mmHg (14.1-43.3); Cord Venous Blood pH 7.31 (7.20-7.44); O2 Saturation Cord Venous Bld < 60.0 % (<68)
--- NOTE | 2023-12-13 12:30 | Operative Report ---
Post Operative Report Pre & Post Diagnosis Operation Date: 12/13/23 10:25 SIUP @ 37+ weeks Preeclampsia without severe features Prior section, declining Desires Sterilization I identified the patient and participated in the time-out.: Yes Procedure Operation Date: 12/13/23 10:25 Actual Procedures Repeat Low Transverse Section, Bilateral Tubal Sterilization Surgeon Rachel Pacheco MD Tile Mechanic Leigh Ann Metcalf RN Quantitative Blood Loss (QBL) 586 Findings Consistent with Post-Op Diagnosis Specimens Left fallopian tube, portion of R fallopian tube. Placenta, cord blood, cord gases. Anesthesia Type Spinal Complications none Disposition Accompanied Patient To Recovery: Yes Disposition: L&D Description of Procedure The patient was placed operating table in the supine position with a leftward tilt. She was prepped and draped in standard sterile fashion. The anesthetic was tested and found to be adequate. A time-out was held, identifying correct patient, procedure, positioning and preoperative antibiotics. There were no concerns. A Pfannenstiel skin incision was made with a knife and taken down to the underlying layer of fascia. The fascia was incised in the midline with the knife and taken out laterally with scissors. The superior edge of the fascial incision was grasped, elevated and dissected off the underlying rectus both superiorly and inferiorly. The muscles were bluntly in the midline. The peritoneum was entered bluntly. The incision was then stretched. Significant adhesions from the anterior surface of the uterus to the anterior abdominal wall, midline and to the R side, were identified. The thickest one, which was severely limiting the size of the abdominal opening for delivery, was isolated via the surgeon wrapping a finger around behind it, and was then lysed in thin layers using [employer]. Only muscular and fibrotic tissue was seen suggesting this was comprised entirely of uterine tissue and scar, without any intervening bowel/bladder/adipose seen. With this released, the uterus which had been severely dextrorotated was seen to relax into a position more nearly midline, but remained slightly tilted R. The bladder retractor was placed. The vesicouterine peritoneum was identified, entered with scissors and taken out laterally with scissors. The bladder was densely adherent to the R side of the uterus up to the level of the cornua. The bladder flap was created digitally. To aid in maximizing visualization and retraction, after palpation of the abdomen to r/o further adhesions, an Isai retractor was placed. A hysterotomy incision was created transversely in the lower uterine segment, final entry being accomplished in a blunt manner with the mobile lounge driver or operator's fingers. Clear amniotic fluid was encountered. The mobile lounge driver or operator's hand was used to elevate the head to the hysterotomy. The head was delivered using a Kiwi Cup and mild fundal pressure, and the shoulders and body followed without difficulty. The cord was clamped and cut and the infant was then handed off to the awaiting architectural manager. Cord blood was obtained. A segment of cord was isolated for cord gas collection as well. The posterior/fundal placenta was Manually extracted. The uterus was unable to be exteriorized, so it was left in-situ and cleared of all clot and debris with moistened laparotomy sponges. The hysterotomy incision was repaired in a running locked layer of 0-vicryl, for good hemostasis. A second running locked repair was completed to close the area on the anterior uterine wall where the large adhesion had previously been lysed, which was raw and slightly oozing. Complete hemostasis was seen in both the hysterotomy repair and the oversewn adhesion. The isai was removed. A medium Otero retractor and bladder retractor were placed, and the gutters to each side of the uterus were cleared of clot and debris using damp lap sponges. Adhesions to the R side of the uterus and pelvic sidewall remained, and were intact / nonbleeding, but continued to limit ability to exteriorize the uterus. The ovaries and tubes were seen to be normal bilaterally, though elevation of the R adnexa would require significant dissection. The patient's desire for sterilization was confirmed. With the uterus remaining in-situ, the L fallopian tube was elevated and excised using LigaSure from cornua to fimbria. The R tube was identified carefully, and without dissecting the fimbriated end completely free, a roughly 1" segment was removed from the cornua following distally to approximately 1/3 to [address] the tube[address] The fimbriated/distal end was left in-situ. The patient was informed that while removal of the whole tube is generally done nowadays for future risk reduction, in her case complete salpingectomy was impractical on the R, and the goal of sterilization was fully reached with a partial salpingectomy. A final inspection of the hysterotomy revealed good hemostasis. A 1-gm mykel was applied to the bladder flap area and pressure held for 60 seconds to ensure ongoing hemostasis. The rectus muscles were allowed to reapproximate naturally. The fascia was then reapproximated with 1 Vicryl in a running nonlocked manner. The fascia was examined and found to be free of defect following closure. The subcutaneous tissue was copiously irrigated and reapproximated with 0-chromic, then the skin edges were closed with 4-0 monocryl in a subcuticular fashion. A dermabond dressing was applied. The ramirez was found to be draining clear yellow urine at completion of the procedure. I attest to the content of the Intraoperative Record and any orders documented therein. Any exceptions are noted below. I attest to the content of the Intraoperative Record and any orders documented therein. Any exceptions are noted below. OB Procedure Charges [id number] [id number] Add on Tubal for C/S
[2023-12-13] MEDS: ARISTA ABSORBABLE HEMOSTAT 3GM TOP ONE (12:59)
[2023-12-13] MEDS ORDERED: MAGNESIUM HYDROXIDE SUSP 30 ML UDC PO PRN (13:04)
[2023-12-13] MEDS ORDERED: SENNA 8.6 MG TAB PO PRN (13:04)
[2023-12-13] MEDS ORDERED: HYDROCORTISONE ACETATE 25 MG SUPP PR PRN (13:04)
[2023-12-13] MEDS ORDERED: BENZOCAINE 20% SPRY 85 APPLN/85 GM CAN EXT PRN (13:04)
--- NOTE | 2023-12-13 13:28 | Anesthesiology Progress Note ---
Date of Service December 13, 2023 Anesthesia Post Procedure Vital Signs Vital Signs: Temp Pulse Resp BP Pulse Ox 12/13/23 13:22 98 12/13/23 13:22 69 12/13/23 13:19 68 12/13/23 13:19 124/70 12/13/23 13:18 20 12/13/23 13:17 100 12/13/23 13:17 71 12/13/23 13:12 100 12/13/23 13:12 77 12/13/23 13:09 71 12/13/23 13:09 122/57 L 12/13/23 13:08 20 12/13/23 13:07 98 12/13/23 13:07 68 12/13/23 13:02 99 12/13/23 13:02 72 12/13/23 12:58 20 12/13/23 12:58 86 12/13/23 12:58 127/73 12/13/23 12:57 98 12/13/23 12:57 77 12/13/23 12:52 99 12/13/23 12:52 75 12/13/23 12:48 20 12/13/23 12:48 74 12/13/23 12:48 122/68 12/13/23 12:47 98 12/13/23 12:47 80 12/13/23 12:42 98 12/13/23 12:42 77 12/13/23 12:38 20 12/13/23 12:38 72 12/13/23 12:38 117/66 12/13/23 12:37 100 12/13/23 12:37 73 12/13/23 12:32 100 12/13/23 12:32 78 12/13/23 12:28 20 12/13/23 12:28 85 12/13/23 12:28 119/68 12/13/23 12:27 100 12/13/23 12:27 80 12/13/23 12:22 98 12/13/23 12:22 71 12/13/23 12:18 97.9 F 20 12/13/23 12:18 79 12/13/23 12:18 115/65 12/13/23 10:02 98.4 F 20 12/13/23 10:00 91 H 133/83 Transfer of Care Handoff Completed per policy Notes Mental Status: alert / awake / arousable and participated in evaluation Nausea / Vomiting: adequately controlled Pain: adequately controlled Airway Patency, RR, SpO2: stable & adequate BP & HR: stable & adequate Hydration State: stable & adequate Neuraxial Anesthesia: was administered and sensory block is resolving Anesthetic Complications: no major complications apparent and Pt Satisfied with anesthetic care
[2023-12-13] MEDS: ACETAMINOPHEN 1,000 MG/100 ML VIAL IV STA (13:43)
[2023-12-13] MEDS: OXYTOCIN 30 UNITS/LR 1,003 ML IV SCH (14:02)
[2023-12-13] MEDS: MoRPHine SULFATE PF 1 MG/ML 10 ML AMP/VIAL INT SPINAL ONE (14:09)
[2023-12-13] MEDS: DIPHTHER/TETAN/PERTUS Vaccine (Tdap, Adol/Adult) 0.5mL IM ONE (14:10)
[2023-12-13] MEDS: SIMETHICONE 80 MG CHEW PO SCH (14:12)
[2023-12-13] MEDS: MEPERIDINE HCL 25 MG/ML CARP/VIAL IV PRN (14:57)
[2023-12-13] MEDS: diphenhydrAMINE 50 MG/ML VIAL IV PRN (15:44)
[2023-12-13] MEDS: DOCUSATE SODIUM 100 MG CAP PO SCH (20:11)
[2023-12-14] MEDS: KETOROLAC 30 MG/ML VIAL IV PRN (01:45)
[2023-12-14] MEDS ORDERED: PROMETHAZINE HCL 25 MG in SODIUM CHLORIDE 0.9% 50 ML IV PRN (05:17)
[2023-12-14] MEDS ORDERED: KETOROLAC 30 MG/ML VIAL IV PRN (05:18)
[2023-12-14] MEDS ORDERED: diphenhydrAMINE 50 MG/ML VIAL IV PRN (05:18)
[2023-12-14] MEDS ORDERED: MEPERIDINE HCL 50 MG/ML CARP IV PRN (05:18)
[2023-12-14] MEDS ORDERED: ONDANSETRON INJ 2 MG/ML 2 ML VIAL IV PRN (05:18)
[2023-12-14] MEDS ORDERED: diphenhydrAMINE Capsule 25 MG CAP PO PRN (05:18)
[2023-12-14] MEDS ORDERED: CITRIC ACID/SODIUM CITRATE 15 ML UDC PO SCH (06:00)
[2023-12-14] MEDS ORDERED: ceFAZolin 3000MG 3,000 MG/72.5 ML BAG IV SCH (06:00)
[2023-12-14] MEDS: IBUPROFEN 600 MG TAB PO PRN (06:23)
[2023-12-14] MEDS: oxyCODONE/ACETAMINOPHEN 5mg/325mg TAB PO PRN (06:23)
[2023-12-14 06:33] LABS: Basophils # (auto) 0.06 K/uL (0.00-0.20); Basophils % (auto) 0.4 %; Eosinophils % (auto) 0.7 %; Hematocrit (blood only) 29.5 % (37.0-47.0); Hemoglobin 9.7 g/dl (12.0-16.0); Immature Granulocytes # (auto) 0.28 K/uL (0.01-0.20); Immature Granulocytes % (auto) 1.9 %; Lymphocytes # (auto) 2.49 K/uL (1.20-3.40); Lymphocytes % (auto) 16.9 %; Mean Corpuscular Hemoglobin 29.4 pg (25.0-34.0); Mean Corpuscular Hgb Conc 32.9 g/dL (32.0-36.0); Mean Corpuscular Volume 89.4 fL (80.0-100.0); Mean Platelet Volume 9.6 fL (9.4-12.4); Monocytes # (auto) 0.98 K/uL (0.11-0.59); Monocytes % (auto) 6.7 %; Neutrophils # (auto) 10.79 K/uL (1.40-6.50); Neutrophils % (auto) 73.4 %; Platelet Count 163 K/uL (130-400); RDW Coefficient of Variation 13.4 % (11.5-14.5); RDW Standard Deviation 43.7 fL (36.4-46.3)
[2023-12-14] MEDS: FERROUS SULFATE 325 MG TAB PO SCH (08:14)
[2023-12-14] MEDS: PRENATAL VITAMIN 1 TAB PO SCH (08:14)
--- NOTE | 2023-12-14 08:38 | Obstetrical Progress Note ---
Date of Service December 14, 2023 Assessment & Plan (1) state: Recovering wel from delivery. BP has normalized. Routine care. Subjective Ambulation: ambulating normally Voiding: no voiding problems Passing Gas:: Yes Diet Tolerance:: regular diet Lochia:: Small Feeding Type:: breast feeding Physical Exam Constitutional WD/WN, vitals as above Eyes PERRL, conjunctivae normal, anicteric sclerae Neck normal visual inspection Respiratory normal respiratory effort and able to speak in complete sentences; no respiratory distress and no labored breathing Cardiovascular Rate/Rhythm: regular rate and regular rhythm Extremities: no edema Chest (Breasts) Chest: normal inspection of chest Gastrointestinal (Abdomen) Inspection/Auscultation: abdomen normal to inspection Soft, postgravid C/D/I with glue Psychiatric A+Ox3, euthymic affect Genitourinary OB Exam Abdomen: + fundal height Fundus: + firm and + relation to umbilicus (f undus just below umbilicus); not tender Results & Data Vital Signs (Past 12 Hours) Vital Signs Temp Pulse Resp BP Pulse Ox O2 Del Method 12/14/23 05:15 98.1 F 89 18 107/66 95 Room Air 12/14/23 04:30 18 96 12/14/23 03:24 18 95 12/14/23 02:24 18 94 12/14/23 01:03 18 93 12/14/23 00:30 18 93 12/13/23 23:29 99.5 F 105 H 18 118/72 93 Room Air 12/13/23 23:18 18 93 12/13/23 22:35 18 94 12/13/23 21:10 18 94 12/13/23 20:44 18 95
[2023-12-14] MEDS: bisacodyL 5 MG TABEC PO SCH (21:36)
[2023-12-15 06:28] LABS: Hematocrit (blood only) 28.1 % (37.0-47.0); Hemoglobin 9.3 g/dl (12.0-16.0)
--- NOTE | 2023-12-15 07:32 | Obstetrical Progress Note ---
Date of Service December 15, 2023 Assessment & Plan (1) state: Day 2 status post repeat section. Patient doing well and stable for discharge per request Subjective Ambulation: ambulating normally Voiding: no voiding problems Passing Gas:: Yes Diet Tolerance:: regular diet Lochia:: Small Feeding Type:: breast feeding Physical Exam Constitutional WD/WN, vitals as above Respiratory normal respiratory effort; no respiratory distress and no labored breathing Cardiovascular Extremities: no calf tenderness Gastrointestinal (Abdomen) Inspection/Auscultation: abdomen normal to inspection; abdomen not distended Percussion/Palpation: abdomen soft; abdomen nontender, no guarding and abdomen not rigid Genitourinary OB Exam Abdomen: + fundal height Fundus: + firm and + relation to umbilicus (Below); not tender or not boggy Results & Data Vital Signs (Past 12 Hours) Vital Signs Temp Pulse Resp BP Pulse Ox O2 Del Method 12/15/23 00:10 36.6 C 97 H 18 138/83 98 Room Air
[2023-12-15] MEDS ORDERED: bisacodyL 10 MG SUPP PR PRN (12:31)
== END 2023-12-15 13:05 | disposition home or self-care (01) | DRG 785 ==
LOC: OPB 09:50 → 4S1 09:54 → 4E2 15:20

== ENCOUNTER 2024-04-26 12:39 | Observation (INO) ==
[2024-04-26 13:16] LABS: POC Urine Bilirubin Negative (Negative); POC Urine Blood Negative (Negative); POC Urine Glucose Normal (Normal); POC Urine Ketones Negative (Negative); POC Urine Leukocytes Negative (Negative); POC Urine Nitrite Negative (Negative); POC Urine Protein Trace (Negative); POC Urine Urobilinogen Normal (Normal); POC Urine pH 5 (4.5-7.5)
[2024-04-26 13:29] LABS: Basophils # (auto) 0.05 K/uL (0.00-0.20); Basophils % (auto) 0.8 %; Eosinophils % (auto) 1.6 %; Hematocrit (blood only) 37.6 % (37.0-47.0); Hemoglobin 12.5 g/dl (12.0-16.0); Immature Granulocytes # (auto) 0.03 K/uL (0.01-0.20); Immature Granulocytes % (auto) 0.5 %; Lymphocytes # (auto) 1.47 K/uL (1.20-3.40); Mean Corpuscular Hemoglobin 27.7 pg (25.0-34.0); Mean Corpuscular Hgb Conc 33.2 g/dL (32.0-36.0); Mean Corpuscular Volume 83.4 fL (80.0-100.0); Mean Platelet Volume 9.2 fL (9.4-12.4); Monocytes # (auto) 0.43 K/uL (0.11-0.59); Monocytes % (auto) 6.7 %; Neutrophils # (auto) 4.32 K/uL (1.40-6.50); Neutrophils % (auto) 67.4 %; Platelet Count 282 K/uL (130-400); RDW Coefficient of Variation 13.2 % (11.5-14.5); RDW Standard Deviation 40.2 fL (36.4-46.3); Red Blood Count 4.51 M/uL (4.20-5.40)
[2024-04-26 13:48] LABS: BUN Creatinine Ratio 13.6 (10-20); Calcium 9.8 mg/dl (8.6-10.3); Creatinine Clr Calc Pharmacy 143.5 ml/min
[2024-04-26 14:18] LABS: Albumin Globulin Ratio 1.4 (0.9-2); Albumin Level 4.6 gm/dl (3.4-5.0); Bilirubin,Total 5.2 mg/dl (0.2-1.0); Globulin 3.4 gm/dl (2.5-4.0)
[2024-04-26] MEDS: OPTIRAY 320 100ml IV ONE (14:41)
--- NOTE | 2024-04-26 14:59 | CT Scan Report ---
CT OF THE ABDOMEN AND PELVIS WITH CONTRAST CLINICAL HISTORY: Flank pain. COMPARISON STUDY: Renal ultrasound November 11, 2021. TECHNIQUE: Following IV administration of 93 mL of Optiray, axial images of the abdomen and pelvis we re obtained from the lung bases to the proximal femurs. Images were reviewed in the axial, sagittal, and coronal planes. IV contrast was administered without complication. Automated exposure control wa s utilized for the study. A dose lowering technique was utilized adhering to the principles of ALARA . CT DOSE: 1224.81 mGy.cm FINDINGS: Lung bases are unremarkable. No pneumatosis, free air or portal venous gas is present. Ther e are no hepatic lesions. There is mild biliary ductal dilatation. The common bile duct measures 8 mm in caliber. No common bile duct calculi are identified by CT. The gallbladder is mildly distended. T here may be trace pericholecystic fluid. A gas containing focus within the gallbladder neck represent s a gallstone. The spleen, adrenal glands, kidneys and pancreas are normal. There is no hydronephrosis. There are no urinary calculi. The caliber and wall thickness of small and large bowel are normal. The appendix is normal. There is no lymphadenopathy. No fluid collections are present. Major vasculature is patent. IMPRESSION: 1. Gallstone within the gallbladder neck with mild gallbladder distention and trace pericholecystic f luid. Acute cholecystitis cannot be excluded. Right upper quadrant ultrasound could be obtained for f urther evaluation. 2. Mild biliary ductal dilatation which could be correlated with obstructive liver function tests. 3. Normal appendix. No bowel obstruction. No bowel wall thickening. 4. No urinary calculi or hydronephrosis. ACT 112: Negative or not required by law. Electronically signed by: Judah Patrick M.D. 04/26/2024 2:58 PM
[2024-04-26] MEDS: ACETAMINOPHEN 1,000 MG/100 ML VIAL IV STA (15:05)
--- NOTE | 2024-04-26 15:57 | Ultrasound Report ---
ABDOMINAL ULTRASOUND, RIGHT UPPER QUADRANT HISTORY: Acute right upper quadrant abdominal pain r/o acute cholecystitis,right flank pain. COMPARISON: 04/26/2024 FINDINGS: Pancreas: The pancreas is obscured by bowel gas. Liver: 19 cm in length with slightly increased parenchymal echogenicity which may represent hepatic s teatosis. No hepatic mass identified. Gallbladder: Bladder distention with cholelithiasis. Borderline gallbladder wall thickening measuring up to 3-4 mm. Sonographic Cifuentes sign cannot be reported secondary to pain medication administered t o the patient. Or pericholecystic fluid better seen on prior CT. CBD: 7 mm. Right kidney: No hydronephrosis. IMPRESSION: 1. Cholelithiasis with sonographic findings suggestive of acute cholecystitis. 2. Borderline dilation of the common bile duct without choledocholithiasis identified by ultrasound. Correlate with serum bilirubin. ACT 112: Negative or not required by law. Electronically signed by: Yuri Mackey M.D. 04/26/2024 3:56 PM
[2024-04-26] MEDS: AMPICILLIN/SULBACTAM SOD 3,000 MG/100 ML BAG IV STA (16:51)
--- NOTE | 2024-04-26 16:54 | Emergency Department Note ---
ED Provider Note History of Present Illness Chief Complaint: Flank Pain Stated Complaint: RT FLANK PAIN, ABD PAIN Time Seen by Provider: 04/26/24 13:18 Source: patient Mode of arrival: ambulatory Limitations: no limitations Patient is a 33-year-old female who presents to the emergency department with complaints of right flank pain that radiates into her abdomen. Patient states that she has been having this pain intermittently for some weeks and felt that maybe it was muscular. Patient did some physical therapy and the pain was not relieved. Patient stated that at that point she figured it was more than just a muscular pain. Patient notes that the pain got worse today and she is feeling some intermittent bouts of nausea so she presented to the emergency department. Patient denies any abdominal surgical history. Home Medications Medication Instructions Recorded Confirmed Type breast pump #1 ea 10/03/23 04/26/24 Rx vits no.124-ferrous fum 1 tab PO DAILY 12/12/23 04/26/24 History 27 mg iron-folic acid 800 mcg tablet ( Vitamin) Allergies Allergy/AdvReac Type Severity Reaction Status Date / Time No Known Allergies Allergy Verified 04/02/24 09:06 Past Med/Surg History Problem List (Updated 04/26/24 @ 17:20 by BOOM Sams) Acute cholecystitis (Acute) Foot sprain (Acute) Medical History state Preeclampsia Elevated BP without diagnosis of hypertension 37 weeks gestation of Hypertension affecting in third trimester Need for rhogam due to Rh negative mother Hydronephrosis Asthma Childhood Surgical History History of tubal ligation Previous delivery affecting , antepartum S/P section [place] teeth extracted 2011 S/P tonsillectomy History of breast biopsy benign, seymour cyst Family History Father Diabetes Mother Lupus Asthma Aunt Breast cancer Son RONAK (juvenile idiopathic arthritis) Other Dyslipidemia Hypertension Denies family history of Ovarian cancer Colorectal cancer Social History Smoking Status: Never smoker Second Hand Exposure: Yes (As a child. 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 How many Children do You have: 2 Feels Safe at Home: Yes Childhood Exposure to Second-Hand Smoke: Yes Diet: regular caffeine: Yes during the past year weight has: remained stable Dental Care, Regularly: Yes Physical Activity Frequency: Does not Exercise Seatbelt Use: always Sunscreen Use: Yes Do you think of yourself as: straight/heterosexual Sexual Activity: has been sexually active within the last 12 months Gender Identity: Female Assistive Devices: Contacts and Glasses Physical Exam Vital Signs Vital Signs - 24 hr 04/26/24 12:45 04/26/24 15:08 04/26/24 16:56 Temperature 36.3 C L Temperature Source Temporal Artery Scan Pulse Rate 78 Pulse Rate [Finger] 84 72 Pulse Rhythm Regular Pulse Rhythm [Finger] Regular Regular Pulse Strength Normal Pulse Strength [Finger] Normal Respiratory Rate 20 18 18 Respiratory Effort / Characteristics Non-Labored Spontaneous Non-Labored Spontaneous Non-Labored Spontaneous Respiratory Depth Normal Normal Normal Blood Pressure 134/92 Blood Pressure [Left Radial Artery] 135/87 124/76 Blood Pressure Mean 106 Blood Pressure Mean [Left Radial Artery] 103 92 Blood Pressure Position Sitting Blood Pressure Position [Left Radial Artery] Sitting Pulse Oximetry 97 99 99 Oxygen Delivery Method Room Air Room Air Room Air Sepsis Recent Fever Within 48 Hours No Sepsis New/Unexplained Change in Mental Status N/A Sepsis Action Taken by Nursing No Action Required VITAL SIGNS - Vital signs and nursing notes were reviewed. GENERAL -33-year-old female appearing her stated age who is in no acute distress. Communicates well with provider and answers questions appropriately. HEAD -normocephalic and atraumatic EYES - PERRL with EOMI bilaterally. Conjunctiva pink and moist with no injection noted. LUNGS - Chest wall symmetric without accessory muscle use, intercostals retractions, or central cyanosis. Breath sounds clear throughout all ruiz. No wheezes, rales, or rhonchi appreciated. CARDIAC - RRR with S1/S2. No murmur, rubs, or gallops appreciated. ABDOMEN - Abdominal contour without pulsations or visible masses. Bowel sounds are normoactive in all four quadrants. Increased tenderness to palpation appreciated in the right flank. No rebound Tenderness. No palpable masses, hepatosplenomegaly, or ascites noted. NEUROLOGIC - Sensory intact to light touch throughout. PSYCH - A&Ox3 and cooperates fully with examiner. Pt is very pleasant and interacts well with examiner. Course Administered Medications Discontinued Medications Acetaminophen (Ofirmev) 1,000 mg in 100 mls @ 400 mls/hr IV NOW STA Stop: 04/26/24 15:08 Last Infusion: 04/26/24 15:25 Dose: Infused Documented By: Admin: 04/26/24 15:05 Dose: 400 mls/hr Documented By: CEZAR Ampicillin Sodium/Sulbactam Sodium (Unasyn) 3,000 mg in 100 mls @ 200 mls/hr IV NOW STA Stop: 04/26/24 17:11 Last Admin: 04/26/24 16:51 Dose: 200 mls/hr Documented By: CEZAR Ioversol (Optiray 320 100ml) 93 ml IV ONCE ONE Stop: 04/26/24 14:41 Last Admin: 04/26/24 14:41 Dose: 93 ml Documented By: ANNALISA Medical Decision Making Differential Diagnosis Differential diagnoses includes gastritis, gastroenteritis, acute cholecystitis, IBS, small bowel obstruction, kidney stone, kidney infection, pancreatitis, peritonitis, constipation, abdominal abcess, among others. Medical Records Attestation: I reviewed the patient's medical records. Home Medications was personally reviewed by me Laboratory Data Attestation: I reviewed the patient's lab results. 04/26/24 13:04 04/26/24 13:04 Lab Results 04/26/24 04/26/24 Range/Units 13:04 13:11 WBC 6.40 (4.8-10.8) K/ul RBC 4.51 (4.20-5.40) M/uL Hgb 12.5 (12.0-16.0) g/dl Hct 37.6 (37.0-47.0) % MCV 83.4 (80.0-100.0) fL MCH 27.7 (25.0-34.0) pg MCHC 33.2 (32.0-36.0) g/dL RDW Std Deviation 40.2 (36.4-46.3) fL RDW Coeff of Evy 13.2 (11.5-14.5) % Plt Count 282 (130-400) K/uL MPV 9.2 L (9.4-12.4) fL Immature Gran % (Auto) 0.5 % Neut % (Auto) 67.4 % Lymph % (Auto) 23.0 % Humphreys % (Auto) 6.7 % Eos % (Auto) 1.6 % Baso % (Auto) 0.8 % Neut # (Auto) 4.32 (1.40-6.50) K/uL Lymph # (Auto) 1.47 (1.20-3.40) K/uL Humphreys # (Auto) 0.43 (0.11-0.59) K/uL Eos # (Auto) 0.10 (0.00-0.50) K/uL Baso # (Auto) 0.05 (0.00-0.20) K/uL Immature Gran # (Auto) 0.03 (0.01-0.20) K/uL Sodium 139 (136-145) mmol/L Potassium 4.0 (3.5-5.1) mmol/L Chloride 109 H (98-107) mmol/L Carbon Dioxide 21 (21-32) mmol/L Anion Gap 9 (3-11) BUN 8 (6-23) mg/dl Creatinine 0.59 L (0.6-1.2) mg/dl Est Cr Clr Drug Dosing 143.5 ml/min eGFR 122.72 BUN/Creatinine Ratio 13.6 (10-20) Glucose 89 (70-99(Fasting)) mg/dl Calcium 9.8 (8.6-10.3) mg/dl Total Bilirubin 5.2 H (0.2-1.0) mg/dl AST 974 H (13-39) U/L ALT 1104 H (7-52) U/L Alkaline Phosphatase 259 H (34-104) U/L Total Protein 8.0 (6.0-8.3) gm/dl Albumin 4.6 (3.4-5.0) gm/dl Globulin 3.4 (2.5-4.0) gm/dl Albumin/Globulin Ratio 1.4 (0.9-2) POC Urine pH 5 (4.5-7.5) POC Urine Protein Trace H (Negative) POC Ur Glucose (UA) Normal (Normal) POC Urine Ketones Negative (Negative) POC Urine Blood Negative (Negative) POC Urine Nitrite Negative (Negative) POC Urine Bilirubin Negative (Negative) POC Urine Urobilinogen Normal (Normal) POC U Leukocyte Esteras Negative (Negative) POC Ur Test NEG (NEG) Imaging Data Radiologist's Impression: Abdomen/Pelvis CT 04/26/24 13:18 CT OF THE ABDOMEN AND PELVIS WITH CONTRAST CLINICAL HISTORY: Flank pain. COMPARISON STUDY: Renal ultrasound November 11, 2021. TECHNIQUE: Following IV administration of 93 mL of Optiray, axial images of the abdomen and pelvis were obtained from the lung bases to the proximal femurs. Images were reviewed in the axial, sagittal, and coronal planes. IV contrast was administered without complication. Automated exposure control was utilized for the study. A dose lowering technique was utilized adhering to the principles of ALARA. CT DOSE: 1224.81 mGy.cm FINDINGS: Lung bases are unremarkable. No pneumatosis, free air or portal venous gas is present. There are no hepatic lesions. There is mild biliary ductal dilatation. The common bile duct measures 8 mm in caliber. No common bile duct calculi are identified by CT. The gallbladder is mildly distended. There may be trace pericholecystic fluid. A gas containing focus within the gallbladder neck represents a gallstone. The spleen, adrenal glands, kidneys and pancreas are normal. There is no hydronephrosis. There are no urinary calculi. The caliber and wall thickness of small and large bowel are normal. The appendix is normal. There is no lymphadenopathy. No fluid collections are present. Major vasculature is patent. IMPRESSION: 1. Gallstone within the gallbladder neck with mild gallbladder distention and trace pericholecystic fluid. Acute cholecystitis cannot be excluded. Right upper quadrant ultrasound could be obtained for further evaluation. 2. Mild biliary ductal dilatation which could be correlated with obstructive liver function tests. 3. Normal appendix. No bowel obstruction. No bowel wall thickening. 4. No urinary calculi or hydronephrosis. ACT 112: Negative or not required by law. Electronically signed by: Judah Patrick M.D. 04/26/2024 2:58 PM Gallbladder Ultrasound 04/26/24 15:10 ABDOMINAL ULTRASOUND, RIGHT UPPER QUADRANT HISTORY: Acute right upper quadrant abdominal pain r/o acute cholecystitis,right flank pain. COMPARISON: 04/26/2024 FINDINGS: Pancreas: The pancreas is obscured by bowel gas. Liver: 19 cm in length with slightly increased parenchymal echogenicity which may represent hepatic steatosis. No hepatic mass identified. Gallbladder: Bladder distention with cholelithiasis. Borderline gallbladder wall thickening measuring up to 3-4 mm. Sonographic Cifuentes sign cannot be reported secondary to pain medication administered to the patient. Or pericholecystic fluid better seen on prior CT. CBD: 7 mm. Right kidney: No hydronephrosis. IMPRESSION: 1. Cholelithiasis with sonographic findings suggestive of acute cholecystitis. 2. Borderline dilation of the common bile duct without choledocholithiasis identified by ultrasound. Correlate with serum bilirubin. ACT 112: Negative or not required by law. Electronically signed by: Yuri Mackey M.D. 04/26/2024 3:56 PM MDM Narrative Patient is a 33-year-old female who presents to the emergency department with complaints of right flank pain that radiates into her abdomen. Patient states that she has been having this pain intermittently for some weeks and felt that maybe it was muscular. Patient did some physical therapy and the pain was not relieved. Patient stated that at that point she figured it was more than just a muscular pain. Patient notes that the pain got worse today and she is feeling some intermittent bouts of nausea so she presented to the emergency department. Patient denies any abdominal surgical history. Patient was evaluated by myself and findings were noted in the physical exam above. Patient was ordered IV placement, lab work, urinalysis, and a CT of the abdomen and pelvis. Patient's lab work resulted with elevated LFTs. Patient's total bili was 5.2, AST was 974, ALT was all 1104 and the patient's alkaline phosphatase was 259. Patient's white blood cell count was normal at 6.40. Patient's urinalysis resulted and was negative for any indications of infection. Patient's abdomen and pelvis CT was interpreted by radiology to show a gallstone within the gallbladder neck with mild gallbladder distention which cannot exclude an acute cholecystitis. Patient CT also showed some mild biliary ductal dilation. The radiologist suggested the patient have an ultrasound of the right upper quadrant to further evaluate the gallbladder. Patient was ordered an ultrasound of the gallbladder which also showed cholelithiasis and suggestive findings of acute cholecystitis. Patient has borderline dilation of the common bile duct without cholelithiasis. I reached out to Dr. Leger who is on-call for general surgery and gave him a report on the patient and while he agreed that the patient had what appeared to be an acute cholecystitis based on her LFTs and total bili being greater than 4 she would need to have an ERCP. Dr. Pitts is on-call for gastro this week and Dr. Leger is suggested that I reach out to Dr. Pitts to ensure that he could do the ERCP. I spoke with Dr. Pitts and gave him a report on the patient's chief complaint, current status, current vitals and results of her imaging and labs. Dr. Pitts agreed that he could help with the ERCP tomorrow but [facility] an [facility] completed. I informed Dr. Pitts that the patient was otherwise healthy and had no other health problems and he agreed that the patient should still be admitted through the medicine service so that they could also get her on antibiotics. I ordered the patient the suggested MRCP and first dose of Unasyn. I spoke with Dr. Harris with the [facility] to admit her under the medicine service. I gave him a report on the patient's current status, chief complaints, and results of her imaging and labs. He agreed that the patient would need the MRCP/ERCP agreed to admit her under his service. Please refer to [facility]'s documentation for further evaluation and management of this patient. Impression Acute cholecystitis Discharge Plan Visit Data Chief Complaint: Flank Pain Stated Complaint: RT FLANK PAIN, ABD PAIN ED Provider: Reji Barnes ED Midlevel Provider: Yessi Carrington Discharge Problem: Acute cholecystitis Patient Disposition: Admitted As Inpatient Forms Stand Alone Forms: [facility] Prescriptions Prescriptions: No Action (DME) breast pump Device See Rx Instructions .ROUTE .MEDSUPPLY Qty: 1 0RF Rx Instructions: As directed Vitamin 27 mg iron- 800 mcg Tablet 1 tab PO DAILY Referrals Referrals: Yolis Galindo CRNP [Primary Care Provider] -
--- NOTE | 2024-04-26 17:10 | History & Physical Report ---
Date of Service April 26, 2024 Assessment & Plan (1) Acute cholecystitis: Plan: Acute cholecystitis, suspected choledocholithiasis 1 day of right upper quadrant abdominal pain. Obstructive transaminitis pattern with bilirubin 5.2 CTA/P consistent with acute cholecystitis. Gallbladder ultrasound with borderline CBD dilation Patient has had nhan colored stools for 1 day Picture is consistent with acute cholecystitis due to choledocholithiasis with current versus passed stone Continue Unasyn General Surgery consulted. GI consulted. We have ERCP availability this week. MRCP is ordered. N.p.o., IV FM Multimodal pain control, Tylenol IV first-line and Toradol second-line Zofran for nausea Patient takes no chronic medications, denies chronic medical problems. No history of DVT. SCDs pending surgical intervention, may add Lovenox for DVT prophylaxis postop CODE STATUS: Full code Disposition: Medical surgical History of Present Illness Primary Care Provider: BOOM Flores seen at the bedside. She reports she is at 1 day of right upper quadrant and right flank pain worsened by meals. This does not radiate into her chest or lower abdomen, rest of her abdomen does feel slightly sore. She reports her symptoms began abruptly 1 day ago. Maybe had a short episode of similar symptoms a month ago otherwise denies any history of similar symptoms. Pain was 10/10 coming in, 67/10 after receiving IV Tylenol. She has had associated white/nhan colored bowel movements. MIld nausea. Has a history of 2 deliveries by section, otherwise denies any medical history takes no medications and does not have any known medication allergies. She does not use tobacco products or alcohol. Denies chest pain, chest pressure. No shortness of breath. Has been nauseous, no vomiting. No hematochezia/melena Other than her prior sections she has had a tonsillectomy and wisdom tooth extraction otherwise denies surgical interventions. No history of reactions or trouble with anesthesia. She has no history of ischemic heart disease, diabetes, kidney disease, or strokes. Allergies Allergy/AdvReac Type Severity Reaction Status Date / Time No Known Allergies Allergy Verified 04/02/24 09:06 Home Medications Medication Instructions Recorded Confirmed Type breast pump #1 ea 10/03/23 04/26/24 Rx vits no.124-ferrous fum 1 tab PO DAILY 12/12/23 04/26/24 History 27 mg iron-folic acid 800 mcg tablet ( Vitamin) Past Med/Surg History Problem List (Updated 04/26/24 @ 17:06 by Delon Davila MD) Acute cholecystitis Foot sprain (Acute) Medical History state Preeclampsia Elevated BP without diagnosis of hypertension 37 weeks gestation of Hypertension affecting in third trimester Need for rhogam due to Rh negative mother Hydronephrosis Asthma Childhood Surgical History History of tubal ligation Previous delivery affecting , antepartum S/P section [place] teeth extracted 2011 S/P tonsillectomy History of breast biopsy benign, seymour cyst Family History Father Diabetes Mother Lupus Asthma Aunt Breast cancer Son RONAK (juvenile idiopathic arthritis) Other Dyslipidemia Hypertension Denies family history of Ovarian cancer Colorectal cancer Social History Smoking Status: Never smoker Second Hand Exposure: Yes (As a child. 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 NAD. Cooperative. HEENT: Atraumatic, normocephalic. Vision and hearing intact Pulm: CTAB A&P. -wheezes, -rales, -rhonchi. Symmetrical chest rise. No increased work of breathing. No respiratory distress. Cardiac: RRR, -mrg. Radial pulses intact and symmetrical. Abdominal: Right upper quadrant tender to palpation. Remaining abdomen is mildly diffusely tender but without rebound/guarding/rigidity Extremities: Warm and dry Results & Data Results & Data Vital Signs (Past 12 Hours) Vital Signs Temp Pulse Pulse Resp BP BP Pulse Ox 04/26/24 16:56 72 18 124/76 99 04/26/24 15:08 84 18 135/87 99 04/26/24 12:45 36.3 C L 78 20 134/92 97 O2 Del Method 04/26/24 16:56 Room Air 04/26/24 15:08 Room Air 04/26/24 12:45 Room Air Code Status & VTE Plan VTE Prophylaxis Plan VTE Prophylaxis will be ordered: Yes PG Care Time/CCT Total # of Minutes Spent Total Time Spent with Patient: Total time spent is greater than 50% in coordination of care (as documented) at patient's floor/unit and/or counseling patient: Coding Level of Care Code 40303 INT INP/OBS CARE 2/55MIN Diagnoses Acute cholecystitis K81.0
--- NOTE | 2024-04-26 18:22 | Magnetic Resonance Report ---
EXAMINATION: MR MRCP CLINICAL HISTORY: Abdominal pain since yesterday with vomiting nausea PRIORS: None TECHNIQUE: Multiplanar multisequence imaging was obtained through the abdomen with MRCP protocol. FINDINGS: The pancreas, spleen, stomach, adrenals and kidneys are morphologically unremarkable. No ascites. No adenopathy in the abdomen. The liver is enlarged measuring 19.6 cm. No intrahepatic ductal dilatation. No hepatic mass identified or restricted diffusion. Gallbladder is mildly distended with multiple gallstones present. No gallbladder wall thickening or pericholecystic fluid. The common bile duct measures 5.8 mm proximally, 7.3 mm mid portion and tapers normally to the level of the pancreatic head. No filling defect. No pancreatic ductal dilatation. No pancreatic divisum. IMPRESSION: 1. Cholelithiasis without MRI evidence of choledocholithiasis or acute cholecystitis. 2. Hepatomegaly Electronically signed by Jaja Stevens 04-26-2024 6:21 PM
--- NOTE | 2024-04-26 20:18 | Surgery Consultation ---
Date of Consultation April 26, 2024 Assessment & Plan (1) Acute cholecystitis: Patient is a 33-year-old female who presented to the ED for concerns of intermittent RUQ abdominal/flank pain that had worsened today with associated nausea. Upon workup imaging was consistent with acute cholecystitis however her LFTs were found to be elevated with a T.Bili of 5.2. For concerns of possible choledocholithiasis she had undergone MRCP which was found to be negative. She was seen and evaluated this evening in the ED, on exam she is tender in the RUQ with palpation otherwise she is nontoxic appearing with stable vitals and pain and nausea currently controlled. The patient's case was discussed with communications technologist attending surgeon, Dr. Leger and surgical team recommends the following: -Patient may have clears until midnight and will make NPO after midnight -MRCP negative for choledocholithiasis however Tbili was 5.2 at time of admission. GI has been consulted. Repeat LFTs ordered for AM to continue to trend -Continue pain control -Antibiotics have been initiated, continue for now -Will tentatively plan for cholecystectomy tomorrow (04/27) however will need to ensure LFTs are downtrending prior to surgical intervention -Medical management per primary team, surgery will continue to follow History of Present Illness Reason for Consultation: Acute cholecystitis History of Present Illness Patient is a 33-year-old female who presented to the emergency department this evening due to complaints of right sided abdominal and flank pain. Patient states that the pain has been intermittent for a few weeks and she originally believed it was a "muscle spasm" and has been seeing physical therapy without any relief. However, she states that the pain had gotten worse today and had as sociated nausea and decreased oral intake which prompted her to come to the ED for further evaluation. She states the pain started shortly after eating buttered toast for breakfast and has been persistent since. She describes the pain mostly in her RUQ but at times it radiates to her flank region. She does have a previous surgical history of x2 but otherwise denies any additional medical history. Upon patient workup she was found to have imaging consistent with acute cholecystitis however she had transaminitis with T.Bili of 5.2 with concerns for possible choledocholithiasis. She had undergone MRCP which was found to be negative for any evidence of choledocholithiasis. Patient was seen and evaluated in the ED this evening, she is resting comfortably in bed, stable vitals, NAD. P atient states her pain is currently well controlled and she denies any ongoing nausea at this time. Allergies Allergy/AdvReac Type Severity Reaction Status Date / Time No Known Allergies Allergy Verified 04/02/24 09:06 Home Medications Medication Instructions Recorded Confirmed Type breast pump #1 ea 10/03/23 04/26/24 Rx vits no.124-ferrous fum 1 tab PO DAILY 12/12/23 04/26/24 History 27 mg iron-folic acid 800 mcg tablet ( Vitamin) Patient History Medical History state Preeclampsia Elevated BP without diagnosis of hypertension 37 weeks gestation of Hypertension affecting in third trimester Need for rhogam due to Rh negative mother Hydronephrosis Asthma Childhood Surgical History History of tubal ligation Previous delivery affecting , antepartum S/P section [place] teeth extracted 2011 S/P tonsillectomy History of breast biopsy benign, seymuor cyst Family History Father Diabetes Mother Lupus Asthma Aunt Breast cancer Son RONAK (juvenile idiopathic arthritis) Other Dyslipidemia Hypertension Denies family history of Ovarian cancer Colorectal cancer Social History Smoking Status: Never smoker Second Hand Exposure: Yes (As a child. 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 How many Children do You have: 2 Feels Safe at Home: Yes Childhood Exposure to Second-Hand Smoke: Yes Diet: regular caffeine: Yes during the past year weight has: remained stable Dental Care, Regularly: Yes Physical Activity Frequency: Does not Exercise Seatbelt Use: always Sunscreen Use: Yes Do you think of yourself as: straight/heterosexual Sexual Activity: has been sexually active within the last 12 months Gender Identity: Female Assistive Devices: Glasses Review of Systems Review of Systems: All systems reviewed & are unremarkable except as noted in HPI & below Gastrointestinal: + abdominal pain and + nausea Physical Exam Constitutional: WD/WN, vitals as above Respiratory: normal respiratory effort, lungs clear to auscultation Cardiovascular: RRR, no murmur, no edema Gastrointestinal (Abdomen): Inspection/Auscultation: abdomen normal to inspection and + abdominal surgical scar (previous scar appreciated); abdomen not distended Percussion/Palpation: + abdomen tender (RUQ with +Cifuentes's sign ) and abdomen soft; no guarding, abdomen not rigid and abdomen not firm Skin: no rashes, warm and dry Psychiatric: A+Ox3, euthymic affect Results & Data Vital Signs (Past 12 Hours) Vital Signs Temp Pulse Pulse Resp BP BP Pulse Ox 04/26/24 20:00 77 18 136/86 99 04/26/24 18:00 74 18 131/75 98 04/26/24 16:56 72 18 124/76 99 04/26/24 15:08 84 18 135/87 99 04/26/24 12:45 36.3 C L 78 20 134/92 97 O2 Del Method 04/26/24 20:00 Room Air 04/26/24 18:00 Room Air 04/26/24 16:56 Room Air 04/26/24 15:08 Room Air 04/26/24 12:45 Room Air Diagnostic Findings CT OF THE ABDOMEN AND PELVIS WITH CONTRAST CLINICAL HISTORY: Flank pain. COMPARISON STUDY: Renal ultrasound November 11, 2021. TECHNIQUE: Following IV administration of 93 mL of Optiray, axial images of the abdomen and pelvis were obtained from the lung bases to the proximal femurs. Images were reviewed in the axial, sagittal, and coronal planes. IV contrast was administered without complication. Automated exposure control was utilized for the study. A dose lowering technique was utilized adhering to the principles of ALARA. CT DOSE: 1224.81 mGy.cm FINDINGS: Lung bases are unremarkable. No pneumatosis, free air or portal venous gas is present. There are no hepatic lesions. There is mild biliary ductal dilatation. The common bile duct measures 8 mm in caliber. No common bile duct calculi are identified by CT. The gallbladder is mildly distended. There may be trace pericholecystic fluid. A gas containing focus within the gallbladder neck represents a gallstone. The spleen, adrenal glands, kidneys and pancreas are normal. There is no hydronephrosis. There are no urinary calculi. The caliber and wall thickness of small and large bowel are normal. The appendix is normal. There is no lymphadenopathy. No fluid collections are present. Major vasculature is patent. IMPRESSION: 1. Gallstone within the gallbladder neck with mild gallbladder distention and trace pericholecystic fluid. Acute cholecystitis cannot be excluded. Right upper quadrant ultrasound could be obtained for further evaluation. 2. Mild biliary ductal dilatation which could be correlated with obstructive liver function tests. 3. Normal appendix. No bowel obstruction. No bowel wall thickening. 4. No urinary calculi or hydronephrosis. ABDOMINAL ULTRASOUND, RIGHT UPPER QUADRANT HISTORY: Acute right upper quadrant abdominal pain r/o acute cholecystitis,right flank pain. COMPARISON: 04/26/2024 FINDINGS: Pancreas: The pancreas is obscured by bowel gas. Liver: 19 cm in length with slightly increased parenchymal echogenicity which may represent hepatic steatosis. No hepatic mass identified. Gallbladder: Bladder distention with cholelithiasis. Borderline gallbladder wall thickening measuring up to 3-4 mm. Sonographic Cifuentes sign cannot be reported secondary to pain medication administered to the patient. Or pericholecystic fluid better seen on prior CT. CBD: 7 mm. Right kidney: No hydronephrosis. IMPRESSION: 1. Cholelithiasis with sonographic findings suggestive of acute cholecystitis. 2. Borderline dilation of the common bile duct without choledocholithiasis identified by ultrasound. Correlate with serum bilirubin. EXAMINATION: MR MRCP CLINICAL HISTORY: Abdominal pain since yesterday with vomiting nausea PRIORS: None TECHNIQUE: Multiplanar multisequence imaging was obtained through the abdomen with MRCP protocol. FINDINGS: The pancreas, spleen, stomach, adrenals and kidneys are morphologically unremarkable. No ascites. No adenopathy in the abdomen. The liver is enlarged measuring 19.6 cm. No intrahepatic ductal dilatation. No hepatic mass identified or restricted diffusion. Gallbladder is mildly distended with multiple gallstones present. No gallbladder wall thickening or pericholecystic fluid. The common bile duct measures 5.8 mm proximally, 7.3 mm mid portion and tapers normally to the level of the pancreatic head. No filling defect. No pancreatic ductal dilatation. No pancreatic divisum. IMPRESSION: 1. Cholelithiasis without MRI evidence of choledocholithiasis or acute cholecystitis. 2. Hepatomegaly PG Care Time/CCT Total # of Minutes Spent Total Time Spent with Patient: Total time spent is greater than 50% in coordination of care (as documented) at patient's floor/unit and/or counseling patient: Coding Level of Care Code 28202 Office/OBS Consult Lvl 1 Diagnoses Acute cholecystitis K81.0
[2024-04-26] MEDS ORDERED: ONDANSETRON INJ 2 MG/ML 2 ML VIAL IV PRN (20:47)
[2024-04-26] MEDS: SODIUM CHLORIDE 0.9% 1,000 ML IV SCH (21:05)
[2024-04-26] MEDS: MoRPHine SULFATE 2 MG/ML CARP IV PRN (21:05)
[2024-04-26] MEDS: AMPICILLIN/SULBACTAM SOD 3,000 MG/100 ML BAG IV SCH (22:16)
[2024-04-26 22:53] LABS: Appearance Urine Clear (Clear); Bacteria Urine Automated None Seen (None Seen); Bilirubin Urine 2+ (Negative); Blood Urine Negative (Negative); Cast Urine Automated 0-2 /lpf (0-2); Color Urine Dark Yellow; Glucose Urine UA Negative (Negative); Ketones Urine 2+ (Negative); Leukocyte Esterase Urine Trace (Negative); Nitrite Urine Negative (Negative); Protein Urine Trace (Negative); RBC Urine Automated 0-2 /hpf (0-2); Specific Gravity Urine 1.032 (1.000-1.030); Urobilinogen Urine Negative (Negative); WBC Urine Automated 0-5 /hpf (0-5); pH Urine 5.5 (4.5-7.5)
[2024-04-27] MEDS: ACETAMINOPHEN 1,000 MG/100 ML VIAL IV PRN (00:36)
[2024-04-27 06:38] LABS: Basophils # (auto) 0.03 K/uL (0.00-0.20); Basophils % (auto) 0.5 %; Eosinophils # (auto) 0.21 K/uL (0.00-0.50); Eosinophils % (auto) 3.3 %; Hematocrit (blood only) 35.8 % (37.0-47.0); Hemoglobin 12.1 g/dl (12.0-16.0); Immature Granulocytes # (auto) 0.02 K/uL (0.01-0.20); Immature Granulocytes % (auto) 0.3 %; Lymphocytes # (auto) 1.19 K/uL (1.20-3.40); Lymphocytes % (auto) 18.9 %; Mean Corpuscular Hemoglobin 28.3 pg (25.0-34.0); Mean Corpuscular Hgb Conc 33.8 g/dL (32.0-36.0); Mean Corpuscular Volume 83.8 fL (80.0-100.0); Mean Platelet Volume 9.3 fL (9.4-12.4); Monocytes # (auto) 0.43 K/uL (0.11-0.59); Monocytes % (auto) 6.8 %; Neutrophils # (auto) 4.41 K/uL (1.40-6.50); Neutrophils % (auto) 70.2 %; Platelet Count 241 K/uL (130-400); RDW Coefficient of Variation 13.2 % (11.5-14.5); RDW Standard Deviation 40.2 fL (36.4-46.3); Red Blood Count 4.27 M/uL (4.20-5.40); White Blood Count 6.29 K/ul (4.8-10.8)
--- NOTE | 2024-04-27 06:53 | Hospitalist Progress Note ---
Date of Service April 27, 2024 Assessment & Plan (1) S/P cholecystectomy: (2) Elevated LFTs: Plan 1) Acute cholecystitis--S/p cholecystectomy Acute cholecystitis, suspected choledocholithiasis 1 day of right upper quadrant abdominal pain. Obstructive transaminitis pattern with bilirubin 5.2; Patient has had nhan colored stools for 1 day CTAP consistent with acute cholecystitis. Gallbladder ultrasound with borderline CBD dilation Picture is consistent with acute cholecystitis due to choledocholithiasis with current versus passed stone NPO, IV FM before surgery; Unasyn started pre-surgery General Surgery consulted. GI consulted. We have ERCP availability this week. MRCP is ordered. Multimodal pain control, Tylenol IV first-line and Toradol second-line; Zofran for nausea - Continue Unasyn, 3000 mg, IV, q6hrs post-surg - patient concerned about need to "pump and dump" her breast milk while on Ampicillin, morphine, Zofran, Dilaudid, etc; no concerns necessary but patient may need reassurance Patient takes no chronic medications, denies chronic medical problems. No history of DVT. SCDs pending surgical intervention, consider adding Lovenox for DVT prophylaxis postop if pt not ambulating CODE STATUS: Full code Disposition: Medical surgical Admission and Anticipated Discharge Date Admission Date: April 26, 2024 Supervising Physician Co-Signing Physician Notes I personally examined the patient and verified all villegas points of history and exam, discussed case, and agree with decision making with Dr Gray Feeling okay postop. Pain under reasonable control. Vitals noted, in general she is awake and alert pleasant no distress. HEENT normocephalic atraumatic mucous membranes moist. Breathing unlabored no accessory muscle use good effort. Skin shows no rashes no pallor or icterus. Neuro without focal deficits. Cholecystitis/transaminitisnow status postcholecystectomy, anticipate LFTs improving. Continue current care for now. Crosscheck in her medications appears to be very low risk with breast-feeding, although a small risk of sedation with the narcotic pain medicines of which she has received relatively little DVT proph - ambulation Subjective Patient reported 1 day of RUQ and right flank pain worsened by meals, pain doesn't radiate into chest or lower abdomen, but rest of abdomen does feel slightly sore. Sxs began abruptly 1 day ago. Maybe w/ short episode of similar Sxs a month ago otherwise denied any Hx of similar Sxs. Pain was initially 10/10, 7/10 after receiving IV Tylenol. Has had associated white/nhan colored bowel movements, w/ mild nausea but no vomiting. Denied chest pain, chest pressure, shortness of breath, and hematochezia/melena Surgical history of 2 deliveries by section, a tonsillectomy and wisdom tooth extraction, otherwise denies surgical interventions. No Hx of reactions or trouble with anesthesia. Patient denied any medical history, takes no medications, and w/ no known medication allergies. She does not use tobacco products or alcohol. She has no history of ischemic heart disease, diabetes, kidney disease, or strokes. This morning the patient was seen and evaluated at bedside. Review of Systems Constitutional: no fever and no chills Ear, Nose, Mouth, Throat: + sore throat (post-surg, post-intubatio n throat i rriation) Respiratory: no cough and no chest congestion Cardiovascular: no chest pain and no palpitations Gastrointestinal: + abdominal pain; no nausea and no vomit ing Musculoskeletal: + back pain (no Hx of back pain, likely related to AP and surgery) Neurologic: no tingling, no numbness, no headache(s) and no confusion Results & Data Results & Data Vital Signs (Past 12 Hours) Vital Signs Temp Pulse Pulse Resp BP BP BP 04/26/24 21:00 36.4 C L 69 16 129/81 04/26/24 20:39 77 18 136/86 04/26/24 20:00 77 18 136/86 Pulse Ox O2 Del Method 04/26/24 21:00 99 Room Air 04/26/24 20:39 99 Room Air 04/26/24 20:00 99 Room Air
[2024-04-27 07:02] LABS: Prothrombin Time 10.7 Seconds (9.0-12.0)
[2024-04-27] MEDS ORDERED: LARYING-O-JET KIT (LTA) ONE (07:14)
[2024-04-27] MEDS ORDERED: ROCURONIUM BROMIDE 10 MG/ML 5 ML VIAL IV ONE (07:14)
[2024-04-27] MEDS ORDERED: MIDAZOLAM HCL 1 MG/ML 2ML VIAL ONE (07:14)
[2024-04-27] MEDS ORDERED: ONDANSETRON INJ 2 MG/ML 2 ML VIAL ONE (07:14)
[2024-04-27] MEDS ORDERED: PROPOFOL IV EMULSION 10 MG/ML 20 ML VIAL IV ONE (07:14)
[2024-04-27] MEDS ORDERED: LIDOCAINE 2% 2 ML VIAL/AMP(20MG/ML) INFIL ONE (07:14)
[2024-04-27] MEDS ORDERED: fentaNYL citrate PF 100 MCG/2 ML VIAL ONE ×2 (07:14→08:31)
[2024-04-27] MEDS ORDERED: DEXAMETHASONE SOD INJ 4 MG/ML VIAL ONE (07:14)
--- NOTE | 2024-04-27 07:33 | History & Physical Bridge Note ---
Date of Service April 27, 2024 History & Physical Bridge Note I have examined the patient, reviewed the History & Physical and in the interval since the performance of the History & Physical I have noted the following changes of clinical significance: no changes noted pt seen. MRCP neg for choledocholithiasis. discussed options/risks ( bleeding/infection/blood clots/bile duct injury or leak/injury to other organs etc....) questions answered. will proceed today with maya ines. pt agrees with plan
[2024-04-27] MEDS ORDERED: ATROPINE SULFATE 0.1 MG/ML 10ML SYR IV PRN (07:35)
[2024-04-27] MEDS ORDERED: HYDROmorphone INJ 1 MG/ML SYRINGE IV PRN (07:35)
[2024-04-27] MEDS ORDERED: ePHEDrine sulfate 50 MG/ML AMP IV PRN (07:35)
[2024-04-27] MEDS ORDERED: ONDANSETRON INJ 2 MG/ML 2 ML VIAL IV PRN (07:35)
--- NOTE | 2024-04-27 07:35 | Anesthesiology Consultation ---
Date of Service April 27, 2024 Assessment & Plan ASA ASA1 Proposed Anesthesia Anesthesia Type: General Risk / Benefits Reviewed With: PT / POA / Parent / Guardian, Accepts Plan and Informed Consent Obtained History Surgery Operation Date: 04/27/24 07:00 Proposed Procedures p Laparoscopic Cholecystectomy - Emigdio Leger, Height/Weight Height: 5 ft 4 in Weight: 81.4 kg Allergies Allergy/AdvReac Type Severity Reaction Status Date / Time No Known Allergies Allergy Verified 04/02/24 09:06 Medications Home Medications Medication Instructions Recorded Confirmed Last Taken breast pump #1 ea 10/03/23 04/26/24 Unknown vits no.124-ferrous fum 1 tab PO DAILY 12/12/23 04/26/24 12/11/23 27 mg iron-folic acid 800 mcg tablet ( Vitamin) Active Medications Generic Name Dose Route Start Last Admin Trade Name Freq PRN Reason Stop Dose Admin Acetaminophen 1,000 mg in 100 mls @ 400 mls/hr 04/26/24 20:47 04/27/24 01:03 Ofirmev IV 04/29/24 20:46 Infused Q8H PRN Infusion pain/fever Ampicillin Sodium/Sulbactam Sodium 3,000 mg in 100 mls @ 200 mls/hr 04/26/24 22:45 04/27/24 06:39 Unasyn IV 05/06/24 22:44 Infused Q6H TEODORO Infusion Sodium Chloride 1,000 mls @ 125 mls/hr 04/26/24 20:47 04/26/24 21:05 Nss IV 04/27/24 20:46 125 mls/hr .Q8H TEODORO Administration Morphine Sulfate 2 mg 04/26/24 20:47 04/27/24 04:53 Morphine Sulfate 2 Mg/Ml Carp IV 05/10/24 20:46 2 mg Q4H PRN Administration breakthrough pain NPO Date Last Intake of Fluids: 04/27/24 Time Last Intake of Fluids: 00:00 Date Last Intake of Solids: 04/27/24 Time Last Intake of Solids: 00:00 Past Medical History Medical History state Preeclampsia Elevated BP without diagnosis of hypertension 37 weeks gestation of Hypertension affecting in third trimester Need for rhogam due to Rh negative mother Hydronephrosis Asthma Childhood Exercise / Class Metabolic Activity II 4-5 Yardwork/Stairs/Walk up hill Past Family History Family History Father Diabetes Mother Lupus Asthma Aunt Breast cancer Son RONAK (juvenile idiopathic arthritis) Other Dyslipidemia Hypertension Denies family history of Ovarian cancer Colorectal cancer Past Surgical History Surgical History History of tubal ligation Previous delivery affecting , antepartum S/P section [place] teeth extracted 2011 S/P tonsillectomy History of breast biopsy benign, [place] cyst Past Anesthesia History No Hx of Anesthesia Complications and No Family Hx of Anesthesia Complications History of PONV No Hx of PONV and No Hx of Motion Sickness Social History Smoking Status: Never smoker Do You Dip or Chew Tobacco: No Hx Alcohol Use: No Hx Substance Use: No substance use type: does not use Review of Systems denies fever/cough/ colds/ chest pain/ SOB/ SHARDA denies SHARDA Physical Exam Vital Signs Last Vital Signs Temp 36.4 C L 04/26/24 21:00 Pulse 69 04/26/24 21:00 Resp 16 04/26/24 21:00 BP 129/81 04/26/24 21:00 Pulse Ox 99 04/26/24 21:00 O2 Del Method Room Air 04/26/24 21:00 ENMT Mouth: no TMJ abnormality and no dentition abnormality Thyromental Distance: > or= 3.5 Finger Breadths Mallampati Class: II Neck neck extension not limited Respiratory normal respiratory effort; no respiratory distress Auscultation: lungs clear to auscultation bilaterally Cardiovascular Rate/Rhythm: regular rate and regular rhythm Neurologic moves all extremities Psychiatric Orientation: alert and oriented x 3 Testing Laboratory Results 04/27/24 05:58 PT 10.7 Seconds (9.0-12.0) 04/27/24 05:58 INR 1.0 (0.9-1.1) 04/27/24 05:58 Urine Color Dark Yellow 04/26/24 22:37 Urine Appearance Clear (Clear) 04/26/24 22:37 Urine pH 5.5 (4.5-7.5) 04/26/24 22:37 Ur Specific [place] 1.032 (1.000-1.030) H 04/26/24 22:37 Urine Protein Trace (Negative) H 04/26/24 22:37 Urine Glucose (UA) Negative (Negative) 04/26/24 22:37 Urine Ketones 2+ (Negative) H 04/26/24 22:37 Urine Nitrite Negative (Negative) 04/26/24 22:37 Ur Leukocyte Esterase Trace (Negative) H 04/26/24 22:37 Urine WBC (Auto) 0-5 /hpf (0-5) 04/26/24 22:37 Urine RBC (Auto) 0-2 /hpf (0-2) 04/26/24 22:37 U Hyaline Cast (Auto) 0-2 /lpf (0-2) 04/26/24 22:37 U Epithel Cells (Auto) 6-10 /hpf (0-2) H 04/26/24 22:37 Urine Bacteria (Auto) None Seen (None Seen) 04/26/24 22:37 04/26/24 13:11 POC Ur Test NEG
[2024-04-27] MEDS ORDERED: SUGAMMADEX SODIUM 200 MG/2 ML VIAL IV ONE (08:41)
--- NOTE | 2024-04-27 08:55 | Gastrointestinal Consultation ---
Date of Consultation April 27, 2024 Assessment & Plan (1) Elevated LFTs: 33 year old female admitted through the ED w/ abdominal pain, imaging concerning for gallstones, possible acute cholecystitis and mild CBD dilation without apparent CBD stone on ABD US, CT or MRCP. She has elevated LFTs on admission w. Tbili 5, AST 974, ALT 1104 and ALKP 259. Repeat LFTs this AM are pending. She is currently out of room for CCY this AM. As no apparent stone on imaging, will await repeat LFTs. If downtrending, can continue to trend. If remain elevated, increasing, or IOC is performed at time of CCY and positive, will proceed with ERCP. Will attempt to evaluate when she is back in room. Continue pain control. Agree w. ABX as ordered. Thank you for allowing us to participate in the care of this patient. Please call with any acute changes, questions or concerns. Please see addendum below with additional recommendation from my supervising physician. Supervising Physician Co-Signing Physician Notes I saw and examined this patient with our nurse practitioner and agree with her assessment and plan. Clinical picture consistent with biliary colic. Abnormal liver enzymes could be consistent with acute cholecystitis, Mirizzi syndrome or choledocholithiasis. The MRCP did not show any filling defects consistent with choledocholithiasis. The duct was not dilated or abnormal. She could have passed a stone spontaneously. Liver enzymes are improving. Bilirubin and alkaline phosphatase tend to lag transaminase elevations. Post laparoscopic cholecystectomy patient's original pain has resolved which had resolved prior to surgery supporting a passed common bile duct stone. At this point in light of her improvement clinically, no signs of cholangitis and the normal MRCP would continue to monitor liver enzymes. If they remain elevated to a significant level and do not normalize, and if she remains asymptomatic would need to consider an hepatocellular etiology for her abnormal liver enzymes. History of Present Illness Reason for Consultation: Acute Chrissy/ERCP Requesting Physician: Rajeev Carson DO Attending Physician: Rajeev Carson DO History of Present Illness 33 year old female without past medical history admitted through the ED on 04/26 w/ abdominal pain. GI was asked to evaluate for potential ERCP. I attempted to evaluate patient x 2 but she was out of room. Chart reviewed. Appears she is in OR for CCY. Yesterdays labs reviewed showing elevated transaminases and tbili. Repeat LFTs this AM pending. Imaging concerning for stones and possible cholecystitis w/ mild CBD dilation but no apparent CBD stone on US, CT or MR. Tbili 5.2 --> AST 974 --> ALT 1104 --> ALKP 259 --> MRCP 2023:Cholelithiasis without MRI evidence of choledocholithiasis or acute cholecystitis. Hepatomegaly ABD US 2023: Cholelithiasis with sonographic findings suggestive of acute cholecystitis. Borderline dilation of the common bile duct without choledocholithiasis identified by ultrasound. Correlate with serum bilirubin. CTAP 2023: . Gallstone within the gallbladder neck with mild gallbladder distention and trace pericholecystic fluid. Acute cholecystitis cannot be excluded. Right upper quadrant ultrasound could be obtained for further evaluation.. Mild biliary ductal dilatation which could be correlated with obstructive liver function tests. Normal appendix. No bowel obstruction. No bowel wall thickening. No urinary calculi or hydronephrosis. Allergies Allergy/AdvReac Type Severity Reaction Status Date / Time No Known Allergies Allergy Verified 04/02/24 09:06 Home Medications Medication Instructions Recorded Confirmed Type breast pump #1 ea 10/03/23 04/26/24 Rx vits no.124-ferrous fum 1 tab PO DAILY 12/12/23 04/26/24 History 27 mg iron-folic acid 800 mcg tablet ( Vitamin) Patient History Medical History state Preeclampsia Elevated BP without diagnosis of hypertension 37 weeks gestation of Hypertension affecting in third trimester Need for rhogam due to Rh negative mother Hydronephrosis Asthma Childhood Surgical History History of tubal ligation Previous delivery affecting , antepartum S/P section Trosper teeth extracted 2011 S/P tonsillectomy History of breast biopsy benign, seymour cyst Family History Father Diabetes Mother Lupus Asthma Aunt Breast cancer Son RONAK (juvenile idiopathic arthritis) Other Dyslipidemia Hypertension Denies family history of Ovarian cancer Colorectal cancer Social History Smoking Status: Never smoker Second Hand Exposure: Yes (As a child. 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 How many Children do You have: 2 Feels Safe at Home: Yes Childhood Exposure to Second-Hand Smoke: Yes Diet: regular caffeine: Yes during the past year weight has: remained stable Dental Care, Regularly: Yes Physical Activity Frequency: Does not Exercise Seatbelt Use: always Sunscreen Use: Yes Do you think of yourself as: straight/heterosexual Sexual Activity: has been sexually active within the last 12 months Gender Identity: Female Assistive Devices: None Review of Systems Review of Systems: Patient out of room, not available to assess Physical Exam Physical Exam: Eyes; mild icterus HENT No masses Chest clear to A Cor S1, S2 physiologic Abd: softer mild incisional tenderness Ext no edema Results & Data Vital Signs (Past 12 Hours) Vital Signs Temp Pulse Resp BP BP Pulse Ox O2 Del Method 04/27/24 07:31 37.2 C 105 H 20 136/80 97 Room Air 04/26/24 21:00 36.4 C L 69 16 129/81 99 Room Air Laboratory Results 04/27/24 04/26/24 04/26/24 Range/Units 05:58 22:37 13:11 WBC 6.29 (4.8-10.8) K/ul RBC 4.27 (4.20-5.40) M/uL Hgb 12.1 (12.0-16.0) g/dl Hct 35.8 L (37.0-47.0) % MCV 83.8 (80.0-100.0) fL MCH 28.3 (25.0-34.0) pg MCHC 33.8 (32.0-36.0) g/dL RDW Std Deviation 40.2 (36.4-46.3) fL RDW Coeff of Evy 13.2 (11.5-14.5) % Plt Count 241 (130-400) K/uL MPV 9.3 L (9.4-12.4) fL Immature Gran % (Auto) 0.3 % Neut % (Auto) 70.2 % Lymph % (Auto) 18.9 % [place] % (Auto) 6.8 % Eos % (Auto) 3.3 % Baso % (Auto) 0.5 % Neut # (Auto) 4.41 (1.40-6.50) K/uL Lymph # (Auto) 1.19 L (1.20-3.40) K/uL [place] # (Auto) 0.43 (0.11-0.59) K/uL Eos # (Auto) 0.21 (0.00-0.50) K/uL Baso # (Auto) 0.03 (0.00-0.20) K/uL Immature Gran # (Auto) 0.02 (0.01-0.20) K/uL PT 10.7 (9.0-12.0) Seconds INR 1.0 (0.9-1.1) Sodium Pending (136-145) mmol/L Potassium Pending (3.5-5.1) mmol/L Chloride Pending (98-107) mmol/L Carbon Dioxide Pending (21-32) mmol/L Anion Gap Pending (3-11) BUN Pending (6-23) mg/dl Creatinine Pending (0.6-1.2) mg/dl Est Cr Clr Drug Dosing Pending ml/min eGFR Pending BUN/Creatinine Ratio Pending (10-20) Glucose Pending (70-99(Fasting)) mg/dl Calcium Pending (8.6-10.3) mg/dl Total Bilirubin Pending (0.2-1.0) mg/dl Direct Bilirubin Pending AST Pending (13-39) U/L ALT Pending (7-52) U/L Alkaline Phosphatase Pending (34-104) U/L Total Protein Pending (6.0-8.3) gm/dl Albumin Pending (3.4-5.0) gm/dl Globulin Pending (2.5-4.0) gm/dl Albumin/Globulin Ratio Pending (0.9-2) Urine Color Dark Yellow Urine Appearance Clear (Clear) Urine pH 5.5 (4.5-7.5) POC Urine pH 5 (4.5-7.5) Ur Specific [place] 1.032 H (1.000-1.030) Urine Protein Trace H (Negative) POC Urine Protein Trace H (Negative) Urine Glucose (UA) Negative (Negative) POC Ur Glucose (UA) Normal (Normal) Urine Ketones 2+ H (Negative) POC Urine Ketones Negative (Negative) Urine Blood Negative (Negative) POC Urine Blood Negative (Negative) Urine Nitrite Negative (Negative) POC Urine Nitrite Negative (Negative) Urine Bilirubin 2+ H (Negative) POC Urine Bilirubin Negative (Negative) Urine Urobilinogen Negative (Negative) POC Urine Urobilinogen Normal (Normal) Ur Leukocyte Esterase Trace H (Negative) POC U Leukocyte Esteras Negative (Negative) Urine WBC (Auto) 0-5 (0-5) /hpf Urine RBC (Auto) 0-2 (0-2) /hpf U Hyaline Cast (Auto) 0-2 (0-2) /lpf U Epithel Cells (Auto) 6-10 H (0-2) /hpf Urine Bacteria (Auto) None Seen (None Seen) POC Ur Test NEG (NEG) 04/26/24 Range/Units 13:04 WBC 6.40 (4.8-10.8) K/ul RBC 4.51 (4.20-5.40) M/uL Hgb 12.5 (12.0-16.0) g/dl Hct 37.6 (37.0-47.0) % MCV 83.4 (80.0-100.0) fL MCH 27.7 (25.0-34.0) pg MCHC 33.2 (32.0-36.0) g/dL RDW Std Deviation 40.2 (36.4-46.3) fL RDW Coeff of Evy 13.2 (11.5-14.5) % Plt Count 282 (130-400) K/uL MPV 9.2 L (9.4-12.4) fL Immature Gran % (Auto) 0.5 % Neut % (Auto) 67.4 % Lymph % (Auto) 23.0 % [place] % (Auto) 6.7 % Eos % (Auto) 1.6 % Baso % (Auto) 0.8 % Neut # (Auto) 4.32 (1.40-6.50) K/uL Lymph # (Auto) 1.47 (1.20-3.40) K/uL [place] # (Auto) 0.43 (0.11-0.59) K/uL Eos # (Auto) 0.10 (0.00-0.50) K/uL Baso # (Auto) 0.05 (0.00-0.20) K/uL Immature Gran # (Auto) 0.03 (0.01-0.20) K/uL PT (9.0-12.0) Seconds INR (0.9-1.1) Sodium 139 (136-145) mmol/L Potassium 4.0 (3.5-5.1) mmol/L Chloride 109 H (98-107) mmol/L Carbon Dioxide 21 (21-32) mmol/L Anion Gap 9 (3-11) BUN 8 (6-23) mg/dl Creatinine 0.59 L (0.6-1.2) mg/dl Est Cr Clr Drug Dosing 143.5 ml/min eGFR 122.72 BUN/Creatinine Ratio 13.6 (10-20) Glucose 89 (70-99(Fasting)) mg/dl Calcium 9.8 (8.6-10.3) mg/dl Total Bilirubin 5.2 H (0.2-1.0) mg/dl Direct Bilirubin AST 974 H (13-39) U/L ALT 1104 H (7-52) U/L Alkaline Phosphatase 259 H (34-104) U/L Total Protein 8.0 (6.0-8.3) gm/dl Albumin 4.6 (3.4-5.0) gm/dl Globulin 3.4 (2.5-4.0) gm/dl Albumin/Globulin Ratio 1.4 (0.9-2) Urine Color Urine Appearance (Clear) Urine pH (4.5-7.5) POC Urine pH (4.5-7.5) Ur Specific [place] (1.000-1.030) Urine Protein (Negative) POC Urine Protein (Negative) Urine Glucose (UA) (Negative) POC Ur Glucose (UA) (Normal) Urine Ketones (Negative) POC Urine Ketones (Negative) Urine Blood (Negative) POC Urine Blood (Negative) Urine Nitrite (Negative) POC Urine Nitrite (Negative) Urine Bilirubin (Negative) POC Urine Bilirubin (Negative) Urine Urobilinogen (Negative) POC Urine Urobilinogen (Normal) Ur Leukocyte Esterase (Negative) POC U Leukocyte Esteras (Negative) Urine WBC (Auto) (0-5) /hpf Urine RBC (Auto) (0-2) /hpf U Hyaline Cast (Auto) (0-2) /lpf U Epithel Cells (Auto) (0-2) /hpf Urine Bacteria (Auto) (None Seen) POC Ur Test (NEG) PG Care Time/CCT Total # of Minutes Spent Total Time Spent with Patient: Total time spent is greater than 50% in coordination of care (as documented) at patient's floor/unit and/or counseling patient: Coding Level of Care Code None Diagnoses Elevated LFTs R79.89
[2024-04-27] MEDS: BUPIVACAINE/EPINEPHRINE 0.5% MPF 1:200,000 30 ML VIAL ONE (09:18)
[2024-04-27 09:20] LABS: BUN Creatinine Ratio 10.3 (10-20); Calcium 9.2 mg/dl (8.6-10.3); Creatinine Clr Calc Pharmacy 143.7 ml/min; Potassium 3.9 mmol/L (3.5-5.1)
--- NOTE | 2024-04-27 09:22 | Operative Report ---
PG Post Operative Report Pre & Post Diagnosis Operation Date: 04/27/24 07:00 Pre-Op Diagnosis: symptomatic cholelithiasis Post-Op Diagnosis: Acute calculous cholecystitis I identified the patient and participated in the time-out.: Yes Procedure Operation Date: 04/27/24 07:00 Actual Procedures p Laparoscopic Cholecystectomy(Not Applicable) - Emigdio Leger DO Surgeon Emigdio Leger DO Dog Licenser krystin Roque Estimated Blood Loss 25 Findings Consistent with Post-Op Diagnosis Specimens gallbladder Description of Procedure After informed consent was obtained the patient was taken to the operating room and placed in the supine position. After successful intubation the abdomen was sterilely prepped and draped in usual fashion. A periumbilical incision was made with an 11 blade scalpel and carried down through the soft tissue using electrocautery. The anterior rectus fascia was opened using electrocautery and 2 #0 Vicryl stay sutures were placed. The peritoneum was elevated with hemostats and incised under direct vision using Metzenbaum scissors. A finger sweep was performed and a 12 mm Martinez trocar was placed. The abdomen was insufflated to 18 mmHg. The laparoscope was inserted and the abdomen was examined in 360. The gallbladder was acutely inflamed which I did not anticipate going in. Otherwise, no other gross abnormalities were identified. A subxiphoid 5 mm port and 2 right upper quadrant 5 mm ports were placed under direct vision. The patient was placed in a reverse Trendelenburg position and slightly airplaned to the left. The gallbladder was grasped and elevated superiorly and laterally. A [place] dissector was used to take down adhesions around the neck of the gallbladder. The cystic duct was identified and skeletonized. The cystic duct was slightly enlarged with what appeared to be potential stones within the proximal cystic duct. Therefore had trouble getting a clip across it. I exchanged the subxiphoid 5 mm port for 12 mm port use a CLEMENTE brown cartridge linear stapler to transect the cystic duct just below what appeared to be a stone. In similar fashion the cystic artery was identified and skeletonized however it was clipped and divided. The gallbladder was removed from the gallbladder fossa with electrocautery. It was placed into an Endo Catch bag. Thorough irrigation was performed. At the end of the procedure there was adequate hemostasis and no evidence of any bile leaks. A final look around the abdomen showed no other abnormalities. The gallbladder and trochars were all removed and the abdomen was desufflated. The fascia of the camera port was closed using 0 Vicryl in a [id number] fashion. All the wounds were irrigated and closed using 4-0 Monocryl. Marcaine was injected around them for postoperative analgesia and skin glue used as a dressing. The patient was awaken extubated and transferred to recovery in stable condition. My physician's specimen preparation assistant was present throughout the entire case... helped with prepping the patient. With exposure for trocar placement, as well as retracted the gallbladder throughout the case and also assisted with wound closure and dressing placement. I attest to the content of the Intraoperative Record and any orders documented therein. Any exceptions are noted below.
[2024-04-27] MEDS: fentaNYL citrate PF 100 MCG/2 ML VIAL IV PRN (09:35)
[2024-04-27 09:43] LABS: Albumin Globulin Ratio 1.4 (0.9-2); Albumin Level 3.9 gm/dl (3.4-5.0); Bilirubin Direct 3.9 mg/dl (0-0.2); Bilirubin,Total 6.9 mg/dl (0.2-1.0); Globulin 2.8 gm/dl (2.5-4.0); Total Protein 6.7 gm/dl (6.0-8.3)
--- NOTE | 2024-04-27 09:55 | Anesthesiology Progress Note ---
Date of Service April 27, 2024 Anesthesia Post Procedure Vital Signs Vital Signs: Temp Pulse Pulse Resp BP BP BP 04/27/24 09:45 105 H 14 129/70 04/27/24 09:35 95 H 22 128/66 04/27/24 09:28 36.0 C L 105 H 18 132/59 L 04/27/24 07:31 37.2 C 105 H 20 136/80 04/26/24 21:00 36.4 C L 69 16 129/81 04/26/24 20:39 77 18 136/86 04/26/24 20:00 77 18 136/86 04/26/24 18:00 74 18 131/75 04/26/24 16:56 72 18 124/76 04/26/24 15:08 84 18 135/87 04/26/24 12:45 36.3 C L 78 20 134/92 Pulse Ox O2 Del Method 04/27/24 09:45 98 Room Air 04/27/24 09:35 96 Room Air 04/27/24 09:28 97 Room Air 04/27/24 07:31 97 Room Air 04/26/24 21:00 99 Room Air 04/26/24 20:39 99 Room Air 04/26/24 20:00 99 Room Air 04/26/24 18:00 98 Room Air 04/26/24 16:56 99 Room Air 04/26/24 15:08 99 Room Air 04/26/24 12:45 97 Room Air Pain Intensity Abdomen: Pain Intensity: 6 Transfer of Care Handoff Completed per policy Notes Mental Status: alert / awake / arousable and participated in evaluation Patient Amnestic to Procedure: Yes Nausea / Vomiting: adequately controlled Pain: adequately controlled Airway Patency, RR, SpO2: stable & adequate BP & HR: stable & adequate Hydration State: stable & adequate Anesthetic Complications: no major complications apparent and Pt Satisfied with anesthetic care
[2024-04-27] MEDS: oxyCODONE HCL IR 5 MG TAB (IMMEDIATE RELEASE) PO PRN ×2 (11:04→17:05)
[2024-04-27] MEDS ORDERED: IBUPROFEN 200 MG TAB PO PRN (14:45)
[2024-04-27] MEDS ORDERED: ACETAMINOPHEN 325 MG TAB PO PRN (14:45)
--- NOTE | 2024-04-27 17:51 | Billing Data ---
Date of Service April 27, 2024 Coding Level of Care Code 09466 SUB INP/OBS CARE
[2024-04-27 19:44] VITALS: RESP 16; O2SAT 97
[2024-04-28 00:34] LABS: Partial Thromboplastin Time 28 Seconds (21-31); Prothrombin Time 10.9 Seconds (9.0-12.0)
[2024-04-28 06:30] LABS: Basophils # (auto) 0.05 K/uL (0.00-0.20); Basophils % (auto) 0.4 %; Eosinophils # (auto) 0.54 K/uL (0.00-0.50); Eosinophils % (auto) 4.3 %; Hematocrit (blood only) 32.5 % (37.0-47.0); Hemoglobin 10.8 g/dl (12.0-16.0); Immature Granulocytes # (auto) 0.06 K/uL (0.01-0.20); Immature Granulocytes % (auto) 0.5 %; Lymphocytes % (auto) 10.4 %; Mean Corpuscular Hemoglobin 27.6 pg (25.0-34.0); Mean Corpuscular Hgb Conc 33.2 g/dL (32.0-36.0); Mean Corpuscular Volume 83.1 fL (80.0-100.0); Mean Platelet Volume 9.3 fL (9.4-12.4); Monocytes # (auto) 0.61 K/uL (0.11-0.59); Monocytes % (auto) 4.9 %; Neutrophils # (auto) 9.99 K/uL (1.40-6.50); Neutrophils % (auto) 79.5 %; Platelet Count 220 K/uL (130-400); RDW Coefficient of Variation 13.3 % (11.5-14.5); RDW Standard Deviation 40.3 fL (36.4-46.3); Red Blood Count 3.91 M/uL (4.20-5.40); White Blood Count 12.55 K/ul (4.8-10.8)
[2024-04-28 06:46] LABS: BUN Creatinine Ratio 10.3 (10-20); Calcium 8.7 mg/dl (8.6-10.3); Creatinine Clr Calc Pharmacy 122.6 ml/min; Potassium 3.3 mmol/L (3.5-5.1)
[2024-04-28 07:07] LABS: Albumin Globulin Ratio 1.2 (0.9-2); Albumin Level 3.4 gm/dl (3.4-5.0); Bilirubin,Total 5.9 mg/dl (0.2-1.0); Globulin 2.9 gm/dl (2.5-4.0); Total Protein 6.3 gm/dl (6.0-8.3)
[2024-04-28] MEDS ORDERED: POLYETHYLENE (MIRALAX) 17 GM PACK PO PRN (08:12)
[2024-04-28 08:22] VITALS: BP 132/82; PULSE 84; TEMP 98.1
[2024-04-28] MEDS: SENNA 8.6 MG TAB PO PRN (09:14)
--- NOTE | 2024-04-28 09:26 | Surgery Progress Note ---
Date of Service April 28, 2024 Assessment & Plan (1) S/P cholecystectomy: Plan: POD#1 lap ines WBC 12.5 (6.2). LFTs downtrending Tb 5.9 (6.9), AST 348 (409), ALT 644 (787) Vital signs are stable, pt afebrile Overall she is feeling well, pain is tolerable and she is eating/drinking without any issues Pt would like to go home as she has two kids at home As pain controlled, LFTs downtrending, tolerating diet we are okay with discharge to home today if okay with medicine No need for antibiotics from our perspective We will recommend outpt labs to ensure LFTs continue to downtrend next week and f/u with us as outpt in 1-2 weeks Return precautions reviewed. Pt seen/examined with Dr. Lopez Admission and Anticipated Discharge Date Admission Date: April 26, 2024 Supervising Physician Co-Signing Physician Notes Her LFTs are slowly downtrending She is doing well clinically, afebrile and tolerating a diet She is stable to be discharged from a surgical standpoint we will repeat her LFTs early next week to ensure that continue to trend downward No need for antibiotics from a surgical standpoint upon discharge Subjective Patient reports feeling well. Tolerating a diet without nausea/vomiting. Has some pain but it is manageable. Physical Exam Physical Exam: awake/alert, no distress, pumping Respiratory: normal respiratory effort Gastrointestinal (Abdomen): Inspection/Auscultation: + abdominal surgical incision (c/d/i with skin glue, mild ecchymosis of supra umbilical incision ) Percussion/Palpation: + abdomen tender (expected ramila incisional discomfort to palpation ) and abdomen soft Results & Data Vital Signs (Past 12 Hours) Vital Signs Temp Pulse Resp BP Pulse Ox O2 Del Method 04/28/24 08:21 98.1 F 84 16 132/82 97 Room Air 04/28/24 03:50 98.6 F 88 16 122/66 97 Room Air 04/27/24 23:30 98.2 F 85 16 109/55 L 97 Room Air PG Care Time/CCT Total # of Minutes Spent Total Time Spent with Patient: Total time spent is greater than 50% in coordination of care (as documented) at patient's floor/unit and/or counseling patient: Coding Level of Care Code 80295 Post Operative Follow-Up Diagnoses S/P cholecystectomy Z90.49
--- NOTE | 2024-04-28 09:41 | Gastroenterology Progress Note ---
Date of Service April 28, 2024 Assessment & Plan (1) Elevated LFTs: Plan: LFT's still elevated but she is asymptomatic. Suspect related to passed CBD stone but labs usually rapidly improve with that. Concern still there for retained CBD stone. I am okay with her going home but I explained to her that she needs to return at first sign of fever or rigors. Explained the potential seriousness of cholangitis to her. She understands and is due to return for labs on Tuesday. Admission and Anticipated Discharge Date Admission Date: April 26, 2024 Subjective Feeling well. Minimal expected postop pain. No fever no vomiting. Wants to go home. LFT's improved but not much Physical Exam Physical Exam: She looks well Results & Data Vital Signs (Past 12 Hours) Vital Signs Temp Pulse Resp BP Pulse Ox O2 Del Method 04/28/24 08:21 36.7 C 84 16 132/82 97 Room Air 04/28/24 03:50 37 C 88 16 122/66 97 Room Air 04/27/24 23:30 36.8 C 85 16 109/55 L 97 Room Air
--- NOTE | 2024-04-28 10:45 | Discharge Summary ---
Date of Service April 28, 2024 Admission HPI Per Admitting Provider Elizabeth seen at the bedside. She reports she is at 1 day of right upper quadrant and right flank pain worsened by meals. This does not radiate into her chest or lower abdomen, rest of her abdomen does feel slightly sore. She reports her symptoms began abruptly 1 day ago. Maybe had a short episode of similar symptoms a month ago otherwise denies any history of similar symptoms. Pain was 10/10 coming in, 67/10 after receiving IV Tylenol. She has had associated white/nhan colored bowel movements. MIld nausea. Has a history of 2 deliveries by section, otherwise denies any medical history takes no medications and does not have any known medication allergies. She does not use tobacco products or alcohol. Denies chest pain, chest pressure. No shortness of breath. Has been nauseous, no vomiting. No hematochezia/melena Other than her prior sections she has had a tonsillectomy and wisdom tooth extraction otherwise denies surgical interventions. No history of reactions or trouble with anesthesia. She has no history of ischemic heart disease, diabetes, kidney disease, or strokes. Principal Diagnosis Acute calculous cholecystitis Transaminitis Discharge Exam Constitutional WD/WN, vitals as above Eyes PERRL, conjunctivae normal, anicteric sclerae Respiratory normal respiratory effort, lungs clear to auscultation Cardiovascular RRR, no murmur, no edema Gastrointestinal (Abdomen) normal bowel sounds, soft, nontender, no hepatosplenomegaly Musculoskeletal no cyanosis or clubbing, extremities motor strength 5/5 Discharge Data Allergies Allergy/AdvReac Type Severity Reaction Status Date / Time No Known Allergies Allergy Verified 04/02/24 09:06 Consultations 04/26/24 16:47 Consult Gastroenterology Stat Consult General Surgery Stat ED Decision to Admit Stat Procedures Performed Operation Date: 04/27/24 07:00 Actual Procedures p Laparoscopic Cholecystectomy(Not Applicable) - Emigdio Leger, DO Ordered Studies 04/26/24 13:18 CT abd pelvis IV con only Stat 04/26/24 15:10 US gallbladder Stat 04/26/24 16:36 MRI MRCP [MR MRCP] Stat Hospital Course (1) S/P cholecystectomy: (2) Elevated LFTs: Plan 1) Acute cholecystitis--S/p cholecystectomy Transaminitis Acute cholecystitis, suspected choledocholithiasis 1 day of right upper quadrant abdominal pain. Obstructive transaminitis pattern with bilirubin 5.2; Patient has had nhan colored stools for 1 day CTAP consistent with acute cholecystitis. Gallbladder ultrasound with borderline CBD dilation General Surgery consulted.: - Had a lap cholecystectomy on 04/27 - abdominal pain resolved GI was consulted: recommended trending LTFs. Concern of developing cholangitis. Discharge today with instruction of symtoms. CMP on Tuesday. close follow up with PCP, GI and Surgery - Augmentin BID for 5 days Total Time Total Time Spent Total Time Spent (In Minutes): <30 Discharge Plan Discharge Items Patient Disposition: Home - Self-Care Reason For Visit: ACUTE KRISTEL, ?[place] Discharge Diagnosis: laparoscopic cholecystectomy Activity: Per Instructions section Lifting: No more than 10 pounds Bathing Comment: may shower starting 04/28/24; no soaking in tubs/pools x 2 weeks Exercise/Sports: Wait until after follow-up appointment Driving/Machine Use: no driving while taking narcotics for pain Non-emergency contact: Primary Care Provider and Surgeon Call non-emergency contact if: you have any medication questions, your symptoms worsen, your pain is worsening, you have a fever, your temperature is above 101.5, your wound has increased redness, your wound has increased drainage and your wound pain has increased Follow-up/Referrals: Emigdio Leger DO [Surgeon] - (please call to schedule follow up in the office within 2 weeks) Yolis Galindo CRNP [Primary Care Provider] - Diet: Regular Ambulatory Orders: Comprehensive Metabolic Panel (Routine) Timeframe: 1 Week Location: Determined by Patient Ordered By: Ivory Kincadi Attending Provider Instructions: Surgeon instructions: SPECIAL CARE INSTRUCTIONS: * You have skin glue over your incisions called dermabond. you may shower with this on. It will tend to dissolve and fall off within a couple weeks. Do not pick at the skin glue * You may shower 04/28/24 . NO soaking in pools or baths for 2 weeks * No lifting greater than 10lbs. No strenuous exercise until cleared by surgeon. Light walking is accepted. * No driving while taking narcotic pain medication; wait at least 3 days * No drinking alcohol while taking narcotic pain medication * May use Ibuprofen/Tylenol over the counter for pain as tolerated. Do not exceed 3grams of Tylenol per 24 hours * Expect some swelling and bruising. * Diet- you may resume your regular diet Call your doctor if: * Temperature above 101 degrees, nausea/vomiting, fever/chills * Pain not relieved by pain medicine ordered * There is increased drainage or redness from any incision * You have any unanswered questions or concerns [phone]. FOLLOW UP VISIT: If not already scheduled, please call the office for a follow-up visit. Office Please obtain blood work next week to ensure your liver enzymes continue to downtrend (sometime next tuesday05/01/24) and follow up with Dr. Leger in 1- 2 weeks for a check up Recommend follow up with your PCP within a week Returned to [facility] if you developed any of this: fever, chills, malaise. Pending Studies at Discharge: Yes Studies:: surgical pathology Stand-Alone Forms: My [facility] BillGuard, Smoking Cessation Medications and DC Order Prescriptions: New oxycodone 5 mg tablet 5 - 10 mg PO .[id number] PRN (Reason: pain, for initial therapy, max 6 tabs per day) Qty: 10 0RF amoxicillin-pot clavulanate 875-125 mg tablet 1 tab PO Q12H 5 Days Qty: 10 0RF Continued (DME) breast pump Device See Rx Instructions .ROUTE .MEDSUPPLY Qty: 1 0RF Rx Instructions: As directed Vitamin 27 mg iron- 800 mcg Tablet 1 tab PO DAILY Discharge Orders: Discharge Order (Routine); Ordered 04/28/24 Ordered By: Lupillo Peacock/Other Patient Handouts: After Gallbladder Surgery Admission Data Admit Date/Time: 04/26/24 16:55 Attending Provider: Rajeev Carson Admit Provider: Delon Davila Primary Care Provider: Yolis Galindo Other Providers: Pino Pitts I; Emigdio Leger; Delon Davila Other Interventions: Discharge Summary Assessment (RN) Last Done: 04/28/24 13:05 Supervising Physician Co-Signing Physician Notes I personally examined the patient and verified all villegas points of history and exam, discussed case, and agree with decision making with Dr Yovani Tree Feeling better overall. Pain under better control. Overall wants to go home. Asked very good questions all of which were answered to the best my ability and to her satisfaction, Ed was on speaker phone at her request while we had the conversation as well. Vitals noted, in general she is awake and alert pleasant no distress. HEENT normocephalic atraumatic mucous membranes moist. Breathing unlabored no accessory muscle use good effort. Skin shows no rashes no pallor or icterus. Neuro without focal deficits. Cholecystitis now status post cholecystectomyoverall improving, LFTs improving, afebrile. Appears to be safe/stable for homediscussed choledocholithiasis/cholangitis risk/signs/symptoms with patientand ongoing follow-up with labs/"red flags" that would require urgent reevaluation. After this discussion she feels comfortable with the idea of going home and knows what to watch for. Will send with an empiric course of Augmentin. Lab work and follow-up early next week. Surgery follow-up as an outpatient. Otherwise as above
--- NOTE | 2024-04-28 15:27 | Billing Data ---
Date of Service April 28, 2024 Coding Level of Care Code 74200 IN/OBS DISCH 30 MIN/LESS
== END 2024-04-28 13:55 | disposition home or self-care (01) | DRG 419 ==
LOC: ED 12:39 → SUATTDRO 16:55 → 3W 16:55 → INTOOBSV 16:55 → 3W 20:39
DX: J45.909 Unspecified asthma, uncomplicated; K80.00 Calculus of gallbladder with acute cholecystitis without obstruction; R74.01 Elevation of levels of liver transaminase levels